=== PATIENT | male | born 1945 | race Hispanic/Latino ===

== ENCOUNTER 2018-10-05 12:51 | Inpatient (IN) | payer OTHER ==
[~2018-10-05] VITALS: Ht 175.3 cm; Wt 88.0 kg
--- NOTE | 2018-10-05 14:57 | Diagnostic Imaging Report ---
Exam: Right foot, 3 views History: Diabetic foot ulcer great toe Comparison: None. Findings: No acute, displaced fracture or dislocation. There is cortical erosion of the subungual tuft of the first distal phalanx. Joint spaces are well-maintained. Soft tissues are notable for mild the first digit soft tissue swelling and atherosclerotic vascular calcifications. Impression: Soft tissue swelling with osteomyelitis of the distal first phalanx. Signed by: Dr. Clement Mckay M.D. on 10/05/2018 2:54 PM
[2018-10-05] MEDS ORDERED: ONDANSETRON HCL INJ 2 MG/ML VIAL IV PRN (17:15)
[2018-10-05] MEDS ORDERED: SODIUM CHLORIDE FLUSH 10 ML SYR INJ PRN (17:15)
[2018-10-05] MEDS ORDERED: SODIUM CHLORIDE 0.9% 1000ML 1,000 ML ONE (17:16)
[2018-10-05] MEDS ORDERED: MORPHINE SULFATE INJ 4 MG/ML INJ IV PRN (17:30)
[2018-10-05] MEDS ORDERED: MORPHINE SULFATE 2 MG/ML SYR IV PRN (17:30)
[2018-10-05 17:48] LABS: BASOPHILS # (AUTO) 0.1 (0.0-0.1); BASOPHILS % 0.5 % (0.0-1.0); EOSINOPHILS # (AUTO) 0.2 (0.0-0.4); EOSINOPHILS % 1.6 % (0.0-6.0); HEMATOCRIT 44.3 % (38.2-49.6); HEMOGLOBIN 14.8 g/dL (14.0-18.0); LYMPHOCYTES # (AUTO) 1.1 (1.0-3.2); LYMPHOCYTES % 11.8 % (18.0-39.1); MEAN CORPUSCULAR HEMOGLOBIN 30.1 pg (28-32); MEAN CORPUSCULAR HGB CONC 33.4 g/dL (31-35); MEAN CORPUSCULAR VOLUME 90.2 fL (81-99); MONOCYTES % 10.4 % (4.4-11.3); NEUTROPHILS # (AUTO) 7.2 (2.1-6.9); NEUTROPHILS % 75.4 % (38.7-80.0); PLATELET COUNT 243 x10e3/uL (140-360); RED BLOOD COUNT 4.91 x10e6/uL (4.3-5.7); RED CELL DISTRIBUTION WIDTH 12.5 % (11.7-14.4)
[2018-10-05] MEDS: PIPER-TAZ 3.375 GM 50 ML IV SCH (18:00)
[2018-10-05] MEDS: SODIUM CHLORIDE 0.9% 1000ML 1,000 ML IV SCH (18:00)
--- NOTE | 2018-10-05 18:04 | NUR ---
The patient is AA&Ox4. The legal contracts specialist was contacted, to request a visit with the family. The legal contracts specialist will see the patient in the AM first thing. The patient is eating a meal as well. The admitting MD is at the bedside to consult with the patient. All fluids and zosyn given as ordered. The patient refused narcotics and anti-emetics. Pt states he is not hurting or nauseous.
[2018-10-05 18:14] LABS: ALANINE AMINOTRANSFERASE 22 IU/L (0-55); ALBUMIN 3.9 g/dL (3.5-5.0); ALKALINE PHOSPHATASE 74 IU/L (40-150); ANION GAP 17.1 mmol/L (8-16); BLOOD UREA NITROGEN 25 mg/dL (7-26); BUN/CREATININE RATIO 21 (6-25); CALCIUM 10.2 mg/dL (8.4-10.2); CARBON DIOXIDE 26 mmol/L (22-29); CHLORIDE 97 mmol/L (98-107); CHOL/HDL RATIO 2.7 (3.9-4.7); CHOLESTEROL 168 MD/DL (0-199); CREATININE, SERUM 1.17 mg/dL (0.72-1.25); EST GLOMERULAR FILTRATION RATE > 60 ML/MIN (60-); GLUCOSE 113 mg/dL (74-118); HDL CHOLESTEROL 62 MG/DL (40-60); LDL CHOLESTEROL 86 MG/DL (60-130); POTASSIUM 4.1 mmol/L (3.5-5.1); SODIUM 136 mmol/L (136-145); TRIGLYCERIDES 101 MG/DL (0-149)
[2018-10-05] MEDS ORDERED: SODIUM CHLORIDE 0.9% 1000ML 1,000 ML IV ONE (18:15)
--- NOTE | 2018-10-05 18:36 | NUR ---
Report called to floor RN. Pt transported to 114 with family.
--- OUTSIDE RECORDS SUMMARY | 2018-10-05 18:41 | XMS REPORT ---
Author Author [facility] Address Unknown Phone Unavailable Care Team Providers Care Prosthetic Technician Name Role Phone Yesica RENEE Unavailable Unavailable Problems This patient has no known problems. Allergies, Adverse Reactions, Alerts This patient has no known allergies or adverse reactions. Medications This patient has no known medications. Results Test Description Test Time Test Comments Text Results Atomic Results Result Comments FOOT RIGHT COMPLETE 2018-10-05 14:52:00 [place] [address] Patient Name: ALE CROSS MR #: [id number] : 1945 Age/Sex: 73/M Req #: [id number] Adm Physician: Ordered by: SIMONE RENEE MD Report #: [id number] Location: ER Room/Bed: Procedure: [id number] DX/FOOT RIGHT COMPLETE Exam Date: Exam Time: REPORT STATUS: Signed Exam: Right foot, 3 views History: Diabetic foot ulcer great toe Comparison: None. Findings: No acute, displaced fracture or dislocation. There is cortical erosion of the subungual tuft of the first distal phalanx. Joint spaces are well-maintained. Soft tissues are notable for mild the first digit soft tissue swelling and atherosclerotic vascular calcifications. Impression: Soft tissue swelling with osteomyelitis of the distal first phalanx. Signed by: Dr. Zain Arnold M.D. on 10/05/2018 2:54 PM Dictated By: ZAIN ARNOLD MD 53 Transcribed By: JALEN on 10/05/181453 COPY TO: SIMONE RENEE MD
--- NOTE | 2018-10-05 19:05 | NUR ---
PT ARRIVED AT THE UNIT FROM ER KI STRETCHER WITH C/O R .GREAT TOE PAIN. UNSTAGEABLE INFECTED WOUND NOTED @ R.GREAT TOE.NO PAIN VOICED.RED DISCOLORATION NOTED @ R.FOOT.ASSESSMENT DONE.NO RESP.DISTRESS.ORIENTED THE PT TO THE UNIT.RECEIVED ORDERS TO GET RENEW THE HOME MEDICATION.INFORMED THE CONSULTS.FAMILY MEMBER AT BED SIDE.BED LOCKED AND IN LOWEST POSITION.PHONE AND CALL LIGHT WITHIN REACH.INSTRUCTED TO CALL FOR ASSISTANCE NEEDED.KEEP MONITORING THE PT.
[2018-10-05 19:55] VITALS: BP 134/72
[2018-10-05 20:00] VITALS: BP 135/72
[2018-10-05] MEDS: VANCOMYCIN 1GM/NS 250 ML 250 ML IV SCH (20:44)
[2018-10-05 21:00] VITALS: BP 135/72
[2018-10-05] MEDS ORDERED: DEXTROSE 50% SYRINGE 50 ML IV PRN (21:00)
[2018-10-05] MEDS: INSULIN LISPRO 100 UNIT/1 ML 3ML VIAL SQ SCH (21:30)
[2018-10-06] VITALS (8 sets, daily range): BP systolic 117–132; BP diastolic 58–73
[2018-10-06] MEDS: SODIUM CHLORIDE 0.9% 1000ML 1,000 ML IV SCH (00:38)
[2018-10-06] MEDS: PIPER-TAZ 3.375 GM 50 ML IV SCH ×3 (02:00→18:21)
[2018-10-06] MEDS ORDERED: PRIMIDONE50 MG PO (02:51)
[2018-10-06] MEDS ORDERED: LOSARTAN POTASS25 MG PO ×2 (02:51)
[2018-10-06] MEDS ORDERED: LEVOTHYROXINE50 MCG PO (02:51)
[2018-10-06] MEDS ORDERED: GABAPENTIN100 MG PO (02:51)
[2018-10-06] MEDS ORDERED: METFORMIN HCL500 MG PO (02:51)
--- NOTE | 2018-10-06 02:56 | NUR ---
MILD DRAINAGE NOTED FROM THE R.GREAT TOE.DRESS THE WOUND.NO PAIN VOICED.
[2018-10-06 05:20] LABS: BASOPHILS % 0.2 % (0.0-1.0); EOSINOPHILS # (AUTO) 0.2 (0.0-0.4); EOSINOPHILS % 2.1 % (0.0-6.0); HEMATOCRIT 39.2 % (38.2-49.6); HEMOGLOBIN 13.1 g/dL (14.0-18.0); LYMPHOCYTES # (AUTO) 0.9 (1.0-3.2); MEAN CORPUSCULAR HGB CONC 33.4 g/dL (31-35); MEAN CORPUSCULAR VOLUME 89.9 fL (81-99); MONOCYTES # (AUTO) 0.8 (0.2-0.8); MONOCYTES % 9.6 % (4.4-11.3); NEUTROPHILS # (AUTO) 6.3 (2.1-6.9); NEUTROPHILS % 76.9 % (38.7-80.0); PLATELET COUNT 193 x10e3/uL (140-360); RED BLOOD COUNT 4.36 x10e6/uL (4.3-5.7); RED CELL DISTRIBUTION WIDTH 12.4 % (11.7-14.4)
[2018-10-06] MEDS: VANCOMYCIN 1GM/NS 250 ML 250 ML IV SCH ×2 (05:40→19:32)
[2018-10-06] MEDS: LEVOTHYROXINE SODIUM 50 MCG TAB PO SCH (05:40)
[2018-10-06 05:50] LABS: ALANINE AMINOTRANSFERASE 18 IU/L (0-55); ALBUMIN 3.2 g/dL (3.5-5.0); ALKALINE PHOSPHATASE 62 IU/L (40-150); ANION GAP 15.4 mmol/L (8-16); BLOOD UREA NITROGEN 22 mg/dL (7-26); BUN/CREATININE RATIO 21 (6-25); CALCIUM 9.1 mg/dL (8.4-10.2); CARBON DIOXIDE 23 mmol/L (22-29); CHLORIDE 99 mmol/L (98-107); CREATININE, SERUM 1.03 mg/dL (0.72-1.25); EST GLOMERULAR FILTRATION RATE > 60 ML/MIN (60-); GLUCOSE 171 mg/dL (74-118); POTASSIUM 4.4 mmol/L (3.5-5.1); SODIUM 133 mmol/L (136-145)
--- NOTE | 2018-10-06 06:50 | NUR ---
ASSESSMENT: Spiritual Distress Referred by ED RN. Pt is scared and feels abandoned by sons. Pt states his mother suffered from the same illness and had bilateral amputation. Pt afraid the same will happen to him. Pt states his sons have stopped communicating with him. Pt expressed emotions thru words and tears. Intervention: Provided hospitality and empathic listening. Facilitated identification of emotions. Provided prayer. Outcome: Pt expressed appreciation for visit. Will follow as able. KEVIN LUJAN Child Support Agent Spiritual Care Department O: [phone] Pager: [phone] ([phone] number calling from)
[2018-10-06] MEDS: INSULIN LISPRO 100 UNIT/1 ML 3ML VIAL SQ SCH ×5 (07:30→21:00)
[2018-10-06] MEDS ORDERED: NOVOLOG MI100 UNIT/1 SQ ×2 (08:46)
--- NOTE | 2018-10-06 09:36 | History and Physical ---
ulcer and right foot cellulitis. HISTORY OF PRESENT ILLNESS: A 73-year-old man with a long history of diabetes, on insulin and oral hypoglycemic medications. The patient has diabetic neuropathy. 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 He did not notice the fact that his right great toe developed an ulcer. It is infected. There is some necrotic tissue. The patient was admitted at this for . The patient is otherwise stable. . PAST MEDICAL HISTORY: Diabetes, on insulin therapy, hypertension, hypothyroidism, diabetic neuropathy. PAST SURGICAL HISTORY: Partial wound resection approximately 3 years ago for , radiation and chemotherapy. ALLERGIES: NO KNOWN ALLERGIES. MEDICATIONS: List reviewed. Gabapentin, levothyroxine , . PHYSICAL EXAMINATION VITAL SIGNS: Temperature is 98, blood pressure 138/74, pulse rate of 92, respirations 18. . HEENT: Head is normocephalic and atraumatic. NECK: Supple grossly. PULMONARY: Clear. CARDIOVASCULAR: Regular rate and rhythm. ABDOMEN: Soft. EXTREMITIES: Right greater toe infected with ulcer with necrotic tissue. Right foot cellulitis as well. Pulses intact. NEUROLOGIC: Diabetic neuropathy . LABORATORY STUDIES: Sodium is 133, potassium 4.1, chloride 97, bicarb 26, BUN 25, creatinine 1.1, glucose 113. WBC is 9.95, hemoglobin 14.8, hematocrit 44.6, and platelets of 243,000. Sed rate is 41. Right foot x-ray shows soft tissue swelling with osteomyelitis of the distal 1st phalanx. IMPRESSION 1. Right 1st phalanx right great toe osteomyelitis with infected diabetic foot ulcer with necrotic tissue and swelling: There is also right foot cellulitis as well. 2. Diabetes, type 2: On insulin therapy. PLAN: IV antibiotics. Tighter control of blood sugar. MRI of the right foot. If confirmed, the patient will need right great toe amputation. consulted. Job#: [id number] CE
--- NOTE | 2018-10-06 09:39 | Progress Note ---
DATE: October 06, 2018 SUBJECTIVE: Patient was seen at bedside accompanied by . Doing somewhat better. Denies any history of fever, chills, nausea, or vomiting. OBJECTIVE VITALS: Afebrile, pulse rate 77, respirations 18, blood pressure 125/68, O2 saturation 96%. EXTREMITIES: Still some foul smell noted to the right great toe. Some discoloration. The cellulitis of the dorsal aspect of the right foot seems to be resolving with the IV antibiotics. Has some pain overlying the 1st metatarsophalangeal joint, right foot when compared to the left. LABS: Show white blood cells dropping to 8.2, hemoglobin 13.1 with a platelet count of 193,000. ASSESSMENT 1. Possible osteomyelitis. 2. Pregangrenous changes noted. 3. Peripheral artery disease with diabetic neuropathy and capsulitis/hallux valgus deformity. PLAN: Will continue dilute wet-to-dry Betadine. Continue IV antibiotics. MRI will be ordered and will be done today. Will treat conservatively for now. Patient understands possible surgical intervention. Will let the foot demarcate before any surgery is attempted to try to salvage as much as possible. Job#: [id number] CE
[2018-10-06] MEDS: INSULIN ASPART 70/30 100 UNITS/ML VIAL SC SCH ×3 (10:00→21:00)
[2018-10-06] MEDS: PRIMIDONE 50 MG TAB PO SCH ×2 (10:00→18:21)
--- NOTE | 2018-10-06 10:12 | Consultation ---
DATE OF CONSULTATION: October 05, 2018 PODIATRY CONSULTATION REASON FOR CONSULTATION: Pain to the right foot with pregangrenous changes noted to the right great toe. HISTORY OF PRESENT ILLNESS: This is a pleasant 73-year-old male with a history of insulin-dependent diabetes, hypertension, hypercholesterolemia, who relates that a piece of metal fell on his right great toe 3 weeks ago. He ignored it due to the fact that he has no feeling. The foot started hurting and the right great toe started smelling very bad according to the who was present. He is currently denying any history of fever, chills, nausea or vomiting. He does relate some discomfort to the forefoot aspect of the right foot overlying the distal aspect of the right great toe and also medial aspect of the 1st metatarsophalangeal joint. PAST MEDICAL HISTORY: As described above. Insulin-dependent diabetes, hypertension, hypercholesterolemia. PAST SURGICAL HISTORY: Remarkable for a partial resection of colon secondary to colon cancer. ALLERGIES: PATIENT DENIES. SOCIAL HISTORY: Denies any smoking, drinking or recreational drug use. Lives with his current . Has 5 kids on a previous marriage. FAMILY HISTORY: Remarkable for diabetes. CURRENT MEDICATIONS: Note listed in the chart including IV vancomycin and Zosyn. Also on morphine sulfate 4 mg IV piggyback every 4 to 6 hours p.r.n. pain. REVIEW OF SYSTEMS: CARDIAC: He is denying any palpitations or arrhythmias. RESPIRATORY: Denies any shortness of breath, productive cough. GASTROINTESTINAL: Denies any diarrhea, constipation. GENITOURINARY: Denies hematuria or problems voiding. VITALS: Afebrile, pulse rate 86, respirations 17, blood pressure 135/72, O2 saturation 99%. LABS: Noted. Has a white blood cell count of 9.5, hemoglobin 14.8, hematocrit 44.3 with a platelet count of 243. PODIATRIC PHYSICAL EXAMINATION: Reveals the following. VASCULATURE: Pedal pulses to both the dorsalis pedis and posterior tibial arteries are barely palpable. Skin temperature between warm and cool to touch. NEUROLOGICAL Reveals a complete loss of protective sensation when utilizing Jerome-Kristofer 5.07 monofilament wire. MUSCULOSKELETAL Reveals muscle mass to be symmetrical, muscle strength to be 4 to 5 out of 5 to all muscle groups. Has some erythema surrounding the 1st metatarsophalangeal joint with pain upon palpation. DERMATOLOGICAL Reveals pregangrenous changes with foul smell noted with a discolored right great toe and swollen when compared to contralateral side. X RAYS: Were reviewed, revealing possible osteolysis to the distal phalanx which may be consistent with osteomyelitis. May also have a stress fracture secondary to a contusion. Has cyst degeneration overlying the 1st metatarsal head medially with calcification of vessels noted. ASSESSMENT: Peripheral arterial disease with cellulitis to the dorsal aspect of the right foot. Pregangrenous changes noted. Diabetic neuropathy with mild hallux valgus deformity. PLAN: Will start diluted wet-to-dry Betadine dressing. Noninvasive arterial Doppler studies/ultrasound will be reviewed. Patient will need to have an MRI. Will treat him conservatively. Patient understands if not responsive to conservative treatment and depending on his arterial ultrasound, may need angioplasties before any surgery is attempted. Patient understands that there is a possibility of losing the toe if it does not respond to IV and local wound care for now. Job#: [id number] BHASKAR
--- NOTE | 2018-10-06 12:17 | Diagnostic Imaging Report ---
TECHNIQUE: Magnetic resonance imaging of the RIGHT foot (forefoot) was performed WITHOUT injected contrast. HISTORY: Right great toe osteomyelitis, pain, heavy object fell on toe, one week ago, per the provided clinical note, signs of gangrene right great toe COMPARISON: Right foot radiographs October 05, 2018 DISCUSSION: Bone: Diffuse edema involving the distal phalanx of the great toe with multiple intrinsic heterogeneity (series 4 image 13 and series 5 image 13), but in general relative preservation of the fatty marrow signal. Joints: Mild degenerative changes of the first metatarsophalangeal joint. No effusion. Soft Tissues: Soft tissue defect at the distal medial aspect of the great toe. Less than expected edema of the great toe soft tissues. Enhancement characteristics cannot be assessed. Edema and atrophy of the intrinsic muscles of the foot. IMPRESSION: First distal phalanx findings are somewhat nonspecific, the absence of intravenous contrast limits this evaluation. Differential considerations include a comminuted nondisplaced fracture of the distal phalanx without superimposed osteomyelitis or gangrene of the distal great toe with mummified fat throughout the distal phalanx. If further imaging characterization is desired and the patient can receive intravenous contrast, follow-up MRI images of the great toe with and without contrast would be helpful. Signed by: Dr. Lucas Petty D.O., M.M.M. on 10/06/2018 12:14 PM
--- NOTE | 2018-10-06 15:39 | NUR ---
Nutrition Screen Note RD Recommendation for Physician: -Continue ADA diet as ordered -Pt and family are not interested in diet education 10/06 Plan of Care: RD following, monitoring for tolerance and adequacy Nutrition reason for involvement: Nutrition risk trigger MST Primary Diagnose(s): 1.Peripheral arterial disease with cellulitis to the dorsal aspect of the right foot. 2.Pregangrenous changes noted. 3.Diabetic neuropathy with mild hallux valgus deformity. PMH: Diabetes, on insulin therapy, hypertension, hypothyroidism, diabetic neuropathy. Ht: 69in Wt: 190lb BMI: 28.1kg/m2 IBW: 160lb RD Assessment: (10/06) Chart reviewed. Labs and meds reviewed. 73 yo M, who is admitted for R foot cellulitis and infection. 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 No GI complains noted. LBM 10/06. Pt denies any chewing or swallowing difficulty. No recent weight loss reported. 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 Pt and family are not interested in any further education. Will continue to monitor and follow. Current Diet: ADA diet Malnutrition Evaluation (10/06/2018) The patient does not meet criteria for a specified degree of malnutrition at this time. Will re-evaluate at follow-up as appropriate. Diet Education Needs Assessment: Diet education indicated, pt and family are not interested. Nutrition Care Level: low Signed: Nevaeh Viveros, MS, RD, LD
--- NOTE | 2018-10-06 19:30 | NUR ---
Completed rounds with morning nurse at bedside. Pt stable lying in bed 45 degrees. Call tucker within reach. Family at bedside. No acute distress noted.
[2018-10-06] MEDS: GABAPENTIN 100 MG CAP PO SCH (21:00)
[2018-10-06] MEDS ORDERED: NON-FORMULARY MEDICATION (Insuln Asp Prt/Insulin Aspart (Novolog Mix 70-30 Flexpen Syrn) 4 SQ SCH (21:00)
[2018-10-06] MEDS: LOSARTAN POTASSIUM 25 MG TAB PO SCH (21:00)
[2018-10-07] VITALS (7 sets, daily range): BP systolic 122–141; BP diastolic 58–73
--- NOTE | 2018-10-07 02:44 | NUR ---
Pt anxious, c/o shakiness of the hands and feeling lightheaded. BS 109mg/dl. Pt drank 4oz orange juice, stated BS is lower that his usual BS level.
[2018-10-07] MEDS: PIPER-TAZ 3.375 GM 50 ML IV SCH ×3 (02:58→17:57)
[2018-10-07] MEDS: LEVOTHYROXINE SODIUM 50 MCG TAB PO SCH (06:34)
[2018-10-07] MEDS: VANCOMYCIN 1GM/NS 250 ML 250 ML IV SCH ×2 (06:34→18:36)
[2018-10-07] MEDS ORDERED: NON-FORMULARY MEDICATION (Insuln Asp Prt/Insulin Aspart (Novolog Mix 70-30 Flexpen Syrn) 3 SQ SCH (07:30)
[2018-10-07] MEDS: INSULIN LISPRO 100 UNIT/1 ML 3ML VIAL SQ SCH ×4 (07:30→21:00)
--- NOTE | 2018-10-07 09:38 | Progress Note ---
DATE: October 07, 2018 SUBJECTIVE: Patient seen at bedside accompanied by spouse. Doing better. Denies any history of fever, chills, nausea, or vomiting. No pain to the right lower extremity secondary to his neuropathy. Has erythema. OBJECTIVE VITALS: Afebrile, pulse rate 71, respirations 18, blood pressure 122/58, O2 saturation 96%. EXTREMITIES: Has still some foul smell to the dorsal aspect of the right great toe secondary to pregangrenous changes. Erythema surrounding the 1st metatarsophalangeal joint with pedal pulses diminished. Cellulitis of the dorsal aspect of right foot is much better. MRI questionable for possible osteomyelitis to the distal phalanx. Also, has a possible stress fracture secondary to the contusion. ASSESSMENT 1. Peripheral artery disease. 2. Diabetic neuropathy with cellulitis and pregangrenous changes noted to the right great toe. PLAN: Dr. Alfredo Rebollar will be consulted for vascular evaluation. Will continue IV antibiotics, such as vancomycin and Zosyn. Will continue local wound care. Ulceration to the distal aspect of the right great toe will be debrided tomorrow. Possible nail avulsion may need to be done for debridement to the nail bed. There may be some bone exposed. Will continue to treat conservatively with IV antibiotics and local wound care. Await Dr. Rebollar to assess his circulation before any definitive procedure is done. Job#: [id number] MA
--- NOTE | 2018-10-07 10:05 | NUR ---
WET TO DRY WOUND CARE WITH BETADINE SOLUTION APPLIED TO THE RIGHT GREAT TOE, PATIENT TOLERATED PROCEDURE WELL, HE DENIES PAIN. ODOR NOTED TO THE TOE WHILE PROVIDING CARE; CALL LIGHT WITHIN EASY REACH, INSTRUCTED TO CALL FOR ASSISTANCE NEEDED.
[2018-10-07] MEDS: PRIMIDONE 50 MG TAB PO SCH ×2 (10:17→17:38)
--- NOTE | 2018-10-07 14:15 | NUR ---
PATIENT CONDITION STABLE WITHOUT ACUTE DISTRESS, FAMILY FRIEND VISITING WITH THE PATIENT.
[2018-10-07] MEDS ORDERED: ATORVASTATIN 20 MG TAB PO SCH (15:30)
--- NOTE | 2018-10-07 15:42 | History and Physical ---
PRIMARY CARE PHYSICIAN: Dr. Gilles Celis PARCEL WRAPPER: Dr. Keron Issa and Dr. Alfredo Acuna CHIEF COMPLAINT: Right greater toe abscess, infected diabetic foot ulcer with cellulitis. HISTORY: The patient is a 73-year-old male with infection of the right foot with right greater toe infection and ulcer. 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 The patient developed this infection. Two weeks ago his caught the infection and brought the patient to his family physician. Subsequently, he was brought into the emergency room. The patient is otherwise stable at this time. PAST MEDICAL HISTORY: Diabetes, on insulin, hypertension. PAST SURGICAL HISTORY: Noncontributory. SOCIAL HISTORY: The patient does not smoke or use alcohol. No recreational drugs. ALLERGIES: NO KNOWN ALLERGIES. HOME MEDICATIONS: List is reviewed. REVIEW OF SYSTEMS: Right greater toe infection. Diabetic foot ulcer with redness and pain. PHYSICAL EXAMINATION VITAL SIGNS: Temperature is 98, blood pressure 135/73, pulse rate is 80, respirations 18. GENERAL: The patient is in no acute distress. He is awake. HEENT: Normocephalic, atraumatic and anicteric. NECK: Supple grossly. PULMONARY: Diminished breath sounds. CARDIOVASCULAR: S1 and S2. Regular rate and rhythm. ABDOMEN: Soft, nontender and nondistended. EXTREMITIES: Right foot cellulitis. Right greater toe abscess and necrotic tissue at the tip and also poor toenail care. NEUROLOGIC: Diabetic neuropathy without any focal deficit. LABORATORY: Sodium is 133, potassium 4.4, chloride 109, bicarb 23, BUN 22 creatinine 1.03, glucose 171. WBC is 8.2, hemoglobin 13.1, hematocrit 39.2, and platelets are 193,000. IMPRESSION 1. Right infected diabetic greater toe ulcer associated with necrotic issues and swelling of right foot. 2. Diabetes, type 2, on insulin therapy. 3. Diabetic neuropathy. PLAN: Continue with IV antibiotics. Vascular consultation. Podiatry care with Dr. Keron Issa. Will monitor the patient closely at this time. Job#: [id number] UT
[2018-10-07] MEDS: ASPIRIN 81 MG CHEW TAB PO SCH (16:32)
[2018-10-07] MEDS: METOPROLOL SUCCINATE 25 MG TAB XL PO SCH (16:33)
[2018-10-07] MEDS: ATORVASTATIN 40 MG TAB PO SCH (16:33)
[2018-10-07] MEDS: SODIUM CHLORIDE 0.9% 1000ML 1,000 ML IV SCH ×2 (16:35)
[2018-10-07] MEDS: ENOXAPARIN SOD INJ 40 MG/0.4 ML SYR SC SCH (17:38)
--- NOTE | 2018-10-07 18:36 | NUR ---
PATIENT IS BEEN TRANSFER TO #[id number], REPORT GIVEN TO THE RECEIVING NURSE. ALL PERSONAL TAKEN WITH THE PATIENT, HE LEFT UNIT PER WHEELCHAIR, ACCOMPANIED BY STAFF.
--- NOTE | 2018-10-07 19:10 | NUR ---
REPORT RECEIVED FROM OFF GOING NURSE ,PT RESTING IN BED ALERT AND ORIENTED, NO DISTRESS NOTED, DENIES NEEDS, CALL LIGHT IN REACH, SITTER AT BEDSIDE
--- NOTE | 2018-10-07 19:10 | NUR ---
REPORT RECEIVED FROM OFF GOING NURSE, PT RESTING IN BED ALERT AND ORIENTED, IV INFUSING PER ORDER, PT VOICES UNDERSTANDING, ALL LIGHT IN REACH, INSTRUCTED TO CALL WITH NEEDS
--- NOTE | 2018-10-07 19:22 | Consultation ---
DATE OF CONSULTATION: October 07, 2018 CARDIOLOGY CONSULTATION REASON FOR CONSULTATION: Peripheral arterial disease. HISTORY OF PRESENT ILLNESS: Mr. Larsen is a pleasant 73-year-old man with history of dyslipidemia, hypertension, neuropathy, who presents to [facility] with right first toe erythema, black discoloration, foul smell, associated to blunt trauma while walking. In the setting of a neuropathy, he did not realize he developed an ulcer for an unclear amount of time and has been dealing with this for at least 2 weeks. He underwent unilateral arterial Doppler of the right lower extremity revealing monophasic waveforms of the anterior tibial and posterior tibial arteries as well as elevated velocities on the right anterior tibial concerning for outflow disease. He has received initial antibiotic therapy as well as IV fluids, initially presenting with elevated lactic acid concerning for sepsis with improvement with initial therapy. He is being evaluated by podiatry with plans for additional surgical revision of the infected foot. Underwent MRI study today, please see separate report. TWELVE-SYSTEM REVIEW: Negative except for as noted above. ALLERGIES: NO KNOWN DRUG ALLERGIES. PAST MEDICAL HISTORY: Diabetes, hypertension, dyslipidemia, and neuropathy. SOCIAL HISTORY: No active smoking, alcohol, or drugs. FAMILY HISTORY: Noncontributory. PHYSICAL EXAMINATION: VITAL SIGNS: Temperature is 97.2, heart rate 80, blood pressure 135/73, respiratory rate 18, O2 sat 95% on room air. BMI is 29.5. GENERAL: In no acute distress, alert. NECK: No JVD. CHEST: Clear to auscultation. CARDIOVASCULAR: Regular rate and rhythm. Normal S1 and S2. No S3 or S4. ABDOMEN: Soft, nontender. EXTREMITIES: No cyanosis or clubbing. Has trace edema to bilateral lower extremities. Right first toe erythema with ulceration and foul smell. Decreased pulses in pedal and dorsalis pedis bilaterally. CARDIOVASCULAR MEDICATIONS: Reviewed. Losartan 50 mg daily. On Zosyn and vancomycin antibiotic. STUDIES: Reviewed. Potassium 4.4, creatinine 1.03. Hemoglobin 13.1, platelets 193,000. Normal AST of 14 and ALT of 18. ASSESSMENT: 1. Peripheral vascular disease with critical limb ischemia and ulcer/cellulitis of right first digit and proximal forefoot (critical limb ischemia). 2. Diabetes mellitus type 2 with neuropathy. 3. Hypertension. 4. Dyslipidemia. 5. Sepsis. RECOMMENDATIONS: I have discussed at length alternatives, indications, risks and benefits for peripheral angiography and possible endovascular intervention. Will initiate aspirin 81 mg daily, atorvastatin 40 mg nightly, initiate low-dose beta patricia for blood pressure optimization and cardiovascular protection perioperatively and schedule for peripheral angiography and possible intervention. Patient voices understanding and agrees with plan of care. Job#: [id number] DR CELESTE
--- NOTE | 2018-10-07 19:23 | NUR ---
PT RECEIVED FROM MED SURG 1 VIA W/C , AAOX4, ORIENTED TO HIS ROOM, NO S/S OF DISTRESS NOTED, DENIES PAIN. RT AC 20G, VANCOMYCIN INFUSING, IV SITE CLEAN AND DRY. RT GREAT TOE CELLULITIS NOTED. GENERAL SKIN INTACT. IN ROOM WITH SPOUSE, CALL LIGHT WITHIN REACH.
[2018-10-07] MEDS: GABAPENTIN 100 MG CAP PO SCH (21:00)
[2018-10-07] MEDS: INSULIN ASPART 70/30 100 UNITS/ML VIAL SC SCH (21:00)
[2018-10-07] MEDS: LOSARTAN POTASSIUM 25 MG TAB PO SCH (21:00)
[2018-10-08] VITALS (13 sets, daily range): BP systolic 109–152; BP diastolic 56–74
[2018-10-08] MEDS: PIPER-TAZ 3.375 GM 50 ML IV SCH ×3 (04:19→17:44)
[2018-10-08] MEDS: VANCOMYCIN 1GM/NS 250 ML 250 ML IV SCH ×2 (05:22→19:20)
[2018-10-08] MEDS: LEVOTHYROXINE SODIUM 50 MCG TAB PO SCH (05:22)
[2018-10-08] MEDS: INSULIN ASPART 70/30 100 UNITS/ML VIAL SC SCH ×2 (07:30→21:00)
[2018-10-08] MEDS: INSULIN LISPRO 100 UNIT/1 ML 3ML VIAL SQ SCH ×4 (07:30→21:00)
--- NOTE | 2018-10-08 08:43 | Progress Note ---
DATE: October 08, 2018 SUBJECTIVE: Patient seen at bedside. Will be having an angiogram with possible angioplasty on this date with Dr. Rebollar. Denies any history of fever, chills, nausea, or vomiting. OBJECTIVE VITAL SIGNS: Afebrile, pulse rate 72, respirations 18, blood pressure 109/56, O2 saturation 96%. EXTREMITIES: Gangrenous changes to the right great toe are getting somewhat better. Has an ulceration to the distal aspect of the right great toe down to very close to bone with a foul smell subungually. The nail is yellow, discolored and filled with debris. Pedal pulses are diminished. Decreased cellulitis of the dorsal aspect of the right foot. ASSESSMENT 1. Peripheral artery disease. 2. Diabetic neuropathy. 3. Grade 3 ulceration/4 ulceration with possible osteomyelitis with onychomycosis. PLAN: Secondary to his neuropathy, sharp excisional debridement of the ulcer was carried very close to bone. Devitalized tissue removed until good viable bleeding tissue was achieved. Nail plate was removed to air out the nail bed. Sterile dressing was applied, including diluted wet-to-dry Betadine. Cultures were taken for aerobic and anaerobic growth. The patient will be undergoing an angiogram with possible angioplasty. Will continue treating the patient conservatively to see how the patient responds to try to salvage toe and foot. Job#: [id number] [place]
[2018-10-08] MEDS ORDERED: MIDAZOLAM HCL 2 MG/2 ML VIAL ONE (08:58)
[2018-10-08] MEDS ORDERED: FENTANYL CITRATE/PF 100MCG/2 ML INJ ONE (08:59)
[2018-10-08] MEDS ORDERED: LIDOCAINE HCL 2% LOCAL 20 ML VIAL ONE (08:59)
[2018-10-08] MEDS ORDERED: IOPAMIDOL 300MG/ML 100 ML INFUS..BTL IV ONE ×2 (08:59→10:04)
[2018-10-08] MEDS ORDERED: NITROGLYCERIN/D5W 200 MCG/ML 250 ML ONE (08:59)
[2018-10-08] MEDS ORDERED: SODIUM CHLORIDE 0.9% 1000ML 1,000 ML ONE ×2 (09:00→10:08)
[2018-10-08] MEDS: PRIMIDONE 50 MG TAB PO SCH ×2 (09:00→17:44)
[2018-10-08] MEDS ORDERED: HEPARIN SOD/SOD CHLORIDE 2,000 ML ONE (09:00)
--- NOTE | 2018-10-08 09:10 | NUR ---
PATIENT OFF THE UNIT TO SYSTEM MANAGER FOR PROCEDURE. PATIENT IS IN STABLE CONDITION WITH NO S/S OF RESPIRATORY DISTRESS. NO PAIN VOICED. DRESSING TO RIGHT GREAT TOE/FOOT IS INTACT.
[2018-10-08] MEDS ORDERED: CLOPIDOGREL BISULFATE 75 MG TAB ONE (09:36)
[2018-10-08] MEDS ORDERED: ASPIRIN 325 MG TAB ONE (09:36)
[2018-10-08] MEDS ORDERED: VERAPAMIL HCL 2.5 MG/ML 2 ML VIAL ONE (10:08)
--- NOTE | 2018-10-08 10:09 | Progress Note ---
DATE: October 08, 2018 CARDIOLOGY PROGRESS NOTE SUBJECTIVE: No new complaints today. OBJECTIVE VITALS: Temperature 97.3, heart rate 71, respiratory rate 16, blood pressure 137/67, O2 sat 98% on room air. GENERAL: In no acute distress. Alert. NECK: No JVD. CHEST: Clear to auscultation. CARDIOVASCULAR: Regular rate and rhythm. S1 and S2. No S3. No S4. ABDOMEN: Soft and nontender. EXTREMITIES: Right 1st toe dressed. CARDIOVASCULAR MEDICATIONS: Reviewed. 1. Metoprolol succinate 25 mg daily. 2. Atorvastatin 40 mg at bedtime. 3. Lovenox 40 mg subcutaneous daily. 4. Aspirin 81 mg daily. 5. Vancomycin and Zosyn. STUDIES: Reviewed. Sodium 133 potassium 4.4, chloride 99, bicarbonate 23, BUN 22, creatinine 1.03, glucose 171. White blood cells 8.2, hemoglobin 13.1 and platelets 193,000. AST 14, ALT 18. ASSESSMENT 1. Peripheral arterial disease with critical limb ischemia, 1st toe wound. 2. Hypertension. 3. Dyslipidemia. 4. Diabetes mellitus, type 2. RECOMMENDATIONS: Plan for angiography and possible endovascular intervention today. Further recommendations to follow. Continue rest of cardiovascular medications. Job#: [id number] CE
--- NOTE | 2018-10-08 11:34 | NUR ---
PATIENT BACK ON THE UNIT FROM [employer]- DRESSING APPLIED TO THE LEFT GROIN SITE, IT IS DRY AND INTACT. PEDAL PULSES CHECKED AND ARE PALPABLE. PATIENT INFORMED AND ACKNOWLEDGES UNDERSTANDING ON REMAINING FLAT UNTIL NOTIFIED. CALL LIGHT WITHIN PATIENT'S HANDS. BED ALARM APPLIED.
[2018-10-08] MEDS: METOPROLOL SUCCINATE 25 MG TAB XL PO SCH (12:49)
[2018-10-08] MEDS: ASPIRIN 81 MG CHEW TAB PO SCH (12:49)
[2018-10-08] MEDS: ATORVASTATIN 40 MG TAB PO SCH (12:49)
[2018-10-08] MEDS ORDERED: COLLAGENASE 5 GM TUBE TOP ONE (17:15)
--- NOTE | 2018-10-08 17:39 | NUR ---
RECEIVED VANCO TROUGH ORDER FROM DR. PIERCE. ORDER TO HOLD VANCOMYCIN IF TROUGH IS GREATER THAN 15 AND OBTAIN A RANDOM VANCO LAB ORDER FOR THE NEXT MORNING.
[2018-10-08] MEDS: ENOXAPARIN SOD INJ 40 MG/0.4 ML SYR SC SCH (17:44)
[2018-10-08] MEDS: SODIUM CHLORIDE 0.9% 1000ML 1,000 ML IV SCH ×2 (18:19→19:25)
--- NOTE | 2018-10-08 18:58 | NUR ---
RECEIVED CALL FROM LAB REGARDING VANCO TROUGH OF 12.5; ACCORDING TO DR. PIERCE'S ORDER OKAY TO ADMINISTER.
--- NOTE | 2018-10-08 19:10 | NUR ---
REPORT RECEIVED FROM OFF GOING NURSE, PT SITTING UP IN BED EATING WITH HOB ELEVATED, PT AAOX 3-4, NO DISTRESS NOTED, DENIES NEEDS, CALL LIGHT IN REACH, INSTRUCTED TO CALL WITH NEEDS, FAMILY AT BEDSIDE, IV INFUSING PER ORDER, DRESSING TO RIGHT TOE/ FOOT, C/D/I NO ACTIVE DRAINAGE NOTED
--- NOTE | 2018-10-08 19:25 | NUR ---
PATIENT IS IN STABLE CONDITION WITH NO S/S OF RESPIRATORY DISTRESS. NO PAIN VOICED. IV ANTIBIOTIC INFUSING. RIGHT GREAT TOE DRESSING IS DRY AND INTACT. FAMILY MEMBERS PRESENT IN ROOM. CALL LIGHT IS WITHIN REACH, INSTRUCTED TO CALL FOR ASSISTANCE NEEDED. REPORT GIVEN TO ONCOMING NURSE.
[2018-10-08] MEDS: GABAPENTIN 100 MG CAP PO SCH (21:00)
[2018-10-08] MEDS: LOSARTAN POTASSIUM 25 MG TAB PO SCH (21:00)
[2018-10-09] MEDS: PIPER-TAZ 3.375 GM 50 ML IV SCH ×3 (02:00→17:21)
[2018-10-09 04:25] VITALS: BP 151/70
[2018-10-09] MEDS: SODIUM CHLORIDE 0.9% 1000ML 1,000 ML IV SCH ×2 (05:25→18:02)
[2018-10-09] MEDS: LEVOTHYROXINE SODIUM 50 MCG TAB PO SCH (06:00)
[2018-10-09] MEDS: VANCOMYCIN 1GM/NS 250 ML 250 ML IV SCH ×2 (06:00→18:02)
[2018-10-09 06:15] LABS: BASOPHILS % 0.3 % (0.0-1.0); EOSINOPHILS # (AUTO) 0.2 (0.0-0.4); EOSINOPHILS % 2.2 % (0.0-6.0); HEMATOCRIT 39.9 % (38.2-49.6); HEMOGLOBIN 13.3 g/dL (14.0-18.0); LYMPHOCYTES # (AUTO) 0.6 (1.0-3.2); LYMPHOCYTES % 8.4 % (18.0-39.1); MEAN CORPUSCULAR HEMOGLOBIN 29.9 pg (28-32); MEAN CORPUSCULAR HGB CONC 33.3 g/dL (31-35); MEAN CORPUSCULAR VOLUME 89.7 fL (81-99); MONOCYTES # (AUTO) 0.7 (0.2-0.8); MONOCYTES % 9.7 % (4.4-11.3); NEUTROPHILS # (AUTO) 5.8 (2.1-6.9); PLATELET COUNT 208 x10e3/uL (140-360); RED BLOOD COUNT 4.45 x10e6/uL (4.3-5.7); RED CELL DISTRIBUTION WIDTH 12.1 % (11.7-14.4)
--- NOTE | 2018-10-09 06:15 | NUR ---
PT RESTING IN BED ALERT AND ORIENTED, ON DISTRESS NOTED, DENIES NEEDS, AT BEDSIDE, CALL LIGHT IN REACH, INSTRUCTED TO CALL WITH NEEDS
[2018-10-09 06:32] LABS: ANION GAP 12.7 mmol/L (8-16); BLOOD UREA NITROGEN 14 mg/dL (7-26); BUN/CREATININE RATIO 15 (6-25); CALCIUM 9.2 mg/dL (8.4-10.2); CARBON DIOXIDE 28 mmol/L (22-29); CHLORIDE 104 mmol/L (98-107); CREATININE, SERUM 0.92 mg/dL (0.72-1.25); EST GLOMERULAR FILTRATION RATE > 60 ML/MIN (60-); GLUCOSE 106 mg/dL (74-118); POTASSIUM 4.7 mmol/L (3.5-5.1); SODIUM 140 mmol/L (136-145)
--- NOTE | 2018-10-09 07:05 | NUR ---
PATIENT IS AWAKE AND IN STABLE CONDITION WITH NO S/S OF RESPIRATORY DISTRESS. NO PAIN VOICED. DRESSING TO RIGHT GREAT TOE/FOOT IS DRY AND INTACT. IV FLUIDS INFUSING. PRESENT IN ROOM. CALL LIGHT IS WITHIN REACH, INSTRUCTED TO CALL FOR ASSISTANCE NEEDED.
[2018-10-09] MEDS: INSULIN LISPRO 100 UNIT/1 ML 3ML VIAL SQ SCH ×4 (07:30→21:00)
[2018-10-09 08:00] VITALS: BP 117/62
[2018-10-09] MEDS ORDERED: ASPIRIN 325 MG TAB PO SCH (09:00)
[2018-10-09] MEDS: ATORVASTATIN 40 MG TAB PO SCH (09:35)
[2018-10-09] MEDS: ASPIRIN 81 MG CHEW TAB PO SCH (09:35)
[2018-10-09] MEDS: CLOPIDOGREL BISULFATE 75 MG TAB PO SCH (09:35)
[2018-10-09] MEDS: PRIMIDONE 50 MG TAB PO SCH ×2 (09:35→17:21)
[2018-10-09] MEDS: METOPROLOL SUCCINATE 25 MG TAB XL PO SCH (09:36)
[2018-10-09] MEDS: INSULIN ASPART 70/30 100 UNITS/ML VIAL SC SCH ×2 (09:48→21:00)
--- NOTE | 2018-10-09 11:30 | Progress Note ---
DATE: October 09, 2018 CARDIOLOGY PROGRESS NOTE SUBJECTIVE: No complaints. His right foot feels warm today. Patient had questions, which were discussed. OBJECTIVE VITALS: Temperature 97.8, heart rate 75, blood pressure 117/62, respiratory rate 18, and O2 sat 95% on room air. BMI 29. GENERAL: In no acute distress. Alert. NECK: No JVD. CHEST: Clear to auscultation. CARDIOVASCULAR: Regular rate and rhythm. Normal S1 and S2. No S3 or S4. ABDOMEN: Soft and nontender. EXTREMITIES: No edema. Warm distal extremities. Right foot covered with dressing. Digits are warm with good capillary refill. STUDIES: Sodium 140, potassium 4.7, chloride 104, bicarbonate 28, BUN 14, creatinine 0.92. Hemoglobin 13.3, platelets 202, white blood cell 9.29. AST 14, ALT 18. CARDIOVASCULAR MEDICATIONS: Reviewed; 1. Metoprolol succinate 25 mg daily. 2. Levothyroxine 50 mg daily. 3. Atorvastatin 40 mg q.h.s. 4. Zosyn and vancomycin antibiotics. 5. Aspirin 81 mg daily. 6. Lovenox 40 mg daily. 7. Clopidogrel 75 mg daily. 8. Losartan 50 mg q.h.s. ASSESSMENT 1. Peripheral arterial disease, status post right anterior tibial [employer] and status post right peroneal CSI arthrectomy and [employer] STEV[employer] with excellent angiographic results. 2. Diabetes mellitus type 2. 3. Hypertension. 4. Dyslipidemia. RECOMMENDATIONS 1. Continue current dual-antiplatelet therapy and rest of cardiovascular medications. 2. Continue antibiotics and wound care per podiatry. Job#: [id number] CARLIN CELESTE
[2018-10-09 11:35] VITALS: BP 117/62
[2018-10-09 11:39] VITALS: BP 122/58
--- NOTE | 2018-10-09 14:54 | Progress Note ---
DATE: October 09, 2018 SUBJECTIVE: Patient seen at bedside accompanied by nurse. Feels somewhat better. Relates he has a warmer foot since he had his angioplasty done by Dr. Rebollar. denies any history of fever, chills, nausea, or vomiting. OBJECTIVE VITAL SIGNS: Afebrile. Pulse rate 71, respirations 18, blood pressure 122/58, O2 saturation 94%. EXTREMITIES: Pedal pulses are somewhat palpable. Skin temperature warm to touch. Better CFT to all toes. Has necrosis to the distal aspect of the right great toe with still some foul smell present. There is bone felt through the ulceration site. LABS: Noted. White blood cell count 7.2, hemoglobin 13.3 with a platelet count of 208. ASSESSMENT: Grade 4 ulcer with possible osteomyelitis with peripheral arterial disease, status post angioplasty with pregangrenous changes. PLAN: Sharp excisional debridement of the ulcer was carried down to bone. Devitalized tissue sharply excised. The bone was scraped until good viable bleeding tissue was achieved. We will continue apply the Santyl followed by diluted wet-to-dry. Patient seems to be responding with serial debridement. We will try salvage toe and foot if possible. We will continue IV antibiotics, local wound care, and offloading. Continue following. Job#: [id number] CARLIN
[2018-10-09 16:01] VITALS: BP 148/70
[2018-10-09] MEDS: ENOXAPARIN SOD INJ 40 MG/0.4 ML SYR SC SCH (17:21)
--- NOTE | 2018-10-09 17:30 | NUR ---
WOUND CARE PROVIDED TO PATIENT'S RIGHT GREAT TOE AT [address] SRIVASTAVA'S ORDER. DRESSING DRY AND INTACT.
--- NOTE | 2018-10-09 19:00 | NUR ---
REPORT RECEIVED FROM OFF GOING NURSE, PT RESTING IN BED ALERT AND ORIENTED, IV INFUSING PER ORDER, NO DISTRESS NOTED, PT DENIES NEEDS, BED LOCKED AND LOW, DRESSING TO RIGHT TOE/FOOT, C/D/I, NO ACTIVE DRAINAGE NOTED, AT BEDSIDE, PT DENIES PAIN, CALL LIGHT IN REACH, INSTRUCTED TO CALL WITH NEEDS
--- NOTE | 2018-10-09 19:00 | NUR ---
PATIENT IS SITTING UP IN BED- IN STABLE CONDITION WITH NO S/S OF RESPIRATORY DISTRESS. IV ANTIBIOTIC INFUSING. IN ROOM. DRESSING TO RIGHT GREAT TOE/FOOT IS DRY AND INTACT. CALL LIGHT IS WITHIN REACH, INSTRUCTED TO CALL FOR ASSISTANCE NEEDED. REPORT GIVEN TO ONCOMING NURSE.
[2018-10-09 20:00] VITALS: BP 159/80
[2018-10-09] MEDS: LOSARTAN POTASSIUM 25 MG TAB PO SCH (21:00)
[2018-10-09] MEDS: GABAPENTIN 100 MG CAP PO SCH (21:00)
[2018-10-10] VITALS (9 sets, daily range): BP systolic 111–167; BP diastolic 58–89
[2018-10-10] MEDS: SODIUM CHLORIDE 0.9% 1000ML 1,000 ML IV SCH ×2 (01:25→17:06)
[2018-10-10] MEDS: PIPER-TAZ 3.375 GM 50 ML IV SCH ×3 (02:00→17:06)
[2018-10-10] MEDS: VANCOMYCIN 1GM/NS 250 ML 250 ML IV SCH (06:00)
[2018-10-10] MEDS: LEVOTHYROXINE SODIUM 50 MCG TAB PO SCH (06:00)
--- NOTE | 2018-10-10 06:08 | NUR ---
PT RESTING IN BED ALERT AND ORIENTED, NO DISTRESS NOTED, DENIES NEEDS, AT BEDSIDE, IV INFUSING PER ORDER, DENIES PAIN, CALL LIGHT IN REACH, INSTRUCTED TO CALL WITH NEEDS
--- NOTE | 2018-10-10 07:05 | NUR ---
PATIENT IS IN STABLE CONDITION WITH NO S/S OF RESPIRATORY DISTRESS. PATIENT DENIES ANY PAIN.IV FLUIDS INFUSING. DRESSING TO RIGHT FOOT IS DRY AND INTACT. CALL LIGHT IS WITHIN REACH, INSTRUCTED TO CALL FOR ASSISTANCE NEEDED.
[2018-10-10] MEDS: INSULIN ASPART 70/30 100 UNITS/ML VIAL SC SCH ×2 (07:30→21:18)
[2018-10-10] MEDS: INSULIN LISPRO 100 UNIT/1 ML 3ML VIAL SQ SCH ×4 (07:30→21:27)
--- NOTE | 2018-10-10 07:33 | NUR ---
RECEIVED A CALL FROM LAB REGARDING CRITICAL VANCO TROUGH OF 25.2- ORDER FROM DR. PIERCE TO HOLD VANCOMYCIN IF VANCO TROUGH IS GREATER THAN 15 AND OBTAIN RANDOM VANCO LAB THE NEXT DAY ().
[2018-10-10] MEDS: METOPROLOL SUCCINATE 25 MG TAB XL PO SCH (08:43)
[2018-10-10] MEDS: PRIMIDONE 50 MG TAB PO SCH ×2 (08:43→17:06)
[2018-10-10] MEDS: CLOPIDOGREL BISULFATE 75 MG TAB PO SCH (08:43)
[2018-10-10] MEDS: ATORVASTATIN 40 MG TAB PO SCH (08:43)
[2018-10-10] MEDS: ASPIRIN 81 MG CHEW TAB PO SCH (08:43)
--- NOTE | 2018-10-10 16:35 | NUR ---
WOUND CARE PROVIDED TO PATIENT'S RIGHT GREAT TOE. DRESSING IS DRY AND INTACT. PRESENT IN ROOM. CALL LIGHT IS WITHIN REACH, INSTRUCTED TO CALL FOR ASSISTANCE NEEDED.
[2018-10-10] MEDS: ENOXAPARIN SOD INJ 40 MG/0.4 ML SYR SC SCH (17:06)
--- NOTE | 2018-10-10 17:16 | Progress Note ---
DATE: October 10, 2018 SUBJECTIVE: Patient seen at bedside. Doing better. Accompanied by spouse. Denies any history of fever, chills, nausea, or vomiting. OBJECTIVE VITAL SIGNS: Afebrile, pulse rate 68, respirations 18, blood pressure 154/74, O2 saturation 98%. EXTREMITIES: Ulceration to the right great toe continues to improve. Granular fibrotic base noted. Bone felt to the distal aspect. Skin color has started to become a little bit more symmetrical with adjacent toe and proximal aspect of the foot. The amount of cellulitis to the dorsal aspect of right lower extremity continues to get better. Patient is starting to have some feeling on his right great toe. Pedal pulses are diminished, but skin temperature warm to touch. LABS: Show a white blood cell count of 7.2. ASSESSMENT: Peripheral arterial disease with a grade 3 ulcer, right foot, possible osteo, with cellulitis. PLAN: We will continue local wound care with Santyl followed by diluted wet-to-dry. Continue Zosyn IV piggyback. Continue offloading. We will continue to follow. Job#: [id number] LPA
--- NOTE | 2018-10-10 19:20 | NUR ---
PATIENT IS IN STABLE CONDITION WITH NO S/S OF RESPIRATORY DISTRESS. NO PAIN VOICED. IV FLUIDS INFUSING. DRESSING TO RIGHT TOE IS DRY AND INTACT. CALL LIGHT IS WITHIN REACH, INSTRUCTED TO CALL FOR ASSISTANCE NEEDED. REPORT GIVEN TO ONCOMING NURSE.
--- NOTE | 2018-10-10 20:03 | NUR ---
RECEIVED PT IN BED AOX4 .RESPIRATIONS ARE EVEN AND UNLABORED .CELLULITIS AT THE RT FOOT WITH DRESSING .RT AC 20 G S/L DEBRIDEMENT TO THE RT FOOT AM .DENIES PAIN CALL LIGHT WITH IN REACH .CONTINUE TO MONITOR
[2018-10-10] MEDS: LOSARTAN POTASSIUM 25 MG TAB PO SCH (20:57)
[2018-10-10] MEDS: GABAPENTIN 100 MG CAP PO SCH (20:57)
--- NOTE | 2018-10-10 22:19 | Progress Note ---
DATE: October 10, 2018 CARDIOLOGY PROGRESS NOTE SUBJECTIVE: No new complaints today. Foot wound healing. OBJECTIVE VITALS: Temperature is 96.1, heart rate 68, blood pressure 154/74, respiratory rate 18, and O2 sat 98%. GENERAL: No acute distress. Alert. NECK: No JVD. CHEST: Clear to auscultation. CARDIOVASCULAR: Regular rate and rhythm. Normal S1 and S2. No S3, no S4. ABDOMEN: Soft. EXTREMITIES: Trace edema. Right foot covered with dressing. CARDIOVASCULAR MEDICATIONS: Reviewed. 1. Aspirin 81 mg daily. 2. Clopidogrel 75 mg daily. 3. Atorvastatin 40 mg nightly. 4. Zosyn and vancomycin antibiotics. 5. Losartan 50 mg daily. 6. Lovenox 20 mg subcutaneous daily. 7. Metoprolol succinate 25 mg daily. STUDIES: Reviewed. Potassium 4.7, creatinine 0.9. Hemoglobin 13.3, platelets 208,000, white blood cells 7.2. Normal transaminases. ASSESSMENT 1. Peripheral arterial disease, status post right anterior tibial percutaneous transluminal angioplasty and right peroneal percutaneous transluminal angioplasty and atherectomy. 2. Diabetes mellitus. 3. Hypertension. 4. Dyslipidemia. 5. First toe wound. RECOMMENDATIONS 1. Continue podiatry care. 2. Continue antibiotics. 3. Current dual-antiplatelet therapy. 4. Continue rest of cardiovascular medications and monitor blood pressure. If it continues to remain elevated, we will up-titrate medication further. Job#: [id number]
[2018-10-11] MEDS: PIPER-TAZ 3.375 GM 50 ML IV SCH ×3 (02:00→16:51)
[2018-10-11 04:25] VITALS: BP 163/83
[2018-10-11] MEDS: SODIUM CHLORIDE 0.9% 1000ML 1,000 ML IV SCH ×2 (05:37→08:42)
[2018-10-11] MEDS: LEVOTHYROXINE SODIUM 50 MCG TAB PO SCH (06:25)
--- NOTE | 2018-10-11 06:25 | NUR ---
PT RESTED DURING THE NIGHT .PT IS NPO FORT HE PROCEDURE PT HAD BATH .FAMILY AT THE BEDSIDE .CALL LIGHT WITH IN REACH
--- NOTE | 2018-10-11 07:22 | NUR ---
REPORT GIVEN TO THE ON COMING NURSE
[2018-10-11 08:40] VITALS: BP 163/83
--- NOTE | 2018-10-11 08:40 | NUR ---
Pt received resting in bed with at bedside. Alert and oriented x4 with saline lock #20 patent in right Ac receiving fluids as ordered. Dressing change done to right foot great toe. Oriented to staff and surroundings. Emotional support given. Fall precautions maintained. Call tucker within reach. All meds given as ordered. Will monitor
[2018-10-11] MEDS: ASPIRIN 81 MG CHEW TAB PO SCH (08:41)
[2018-10-11] MEDS: CLOPIDOGREL BISULFATE 75 MG TAB PO SCH (08:41)
[2018-10-11] MEDS: METOPROLOL SUCCINATE 25 MG TAB XL PO SCH (08:41)
[2018-10-11] MEDS: PRIMIDONE 50 MG TAB PO SCH ×2 (08:41→16:04)
[2018-10-11 09:13] LABS: BASOPHILS # (AUTO) 0.1 (0.0-0.1); BASOPHILS % 0.7 % (0.0-1.0); EOSINOPHILS # (AUTO) 0.3 (0.0-0.4); EOSINOPHILS % 3.5 % (0.0-6.0); HEMATOCRIT 40.6 % (38.2-49.6); HEMOGLOBIN 13.6 g/dL (14.0-18.0); LYMPHOCYTES % 13.3 % (18.0-39.1); MEAN CORPUSCULAR HEMOGLOBIN 30.3 pg (28-32); MEAN CORPUSCULAR HGB CONC 33.5 g/dL (31-35); MEAN CORPUSCULAR VOLUME 90.4 fL (81-99); MONOCYTES # (AUTO) 0.9 (0.2-0.8); NEUTROPHILS % 69.9 % (38.7-80.0); PLATELET COUNT 217 x10e3/uL (140-360); RED BLOOD COUNT 4.49 x10e6/uL (4.3-5.7); RED CELL DISTRIBUTION WIDTH 12.3 % (11.7-14.4)
[2018-10-11 09:22] LABS: ANION GAP 13.3 mmol/L (8-16); BLOOD UREA NITROGEN 12 mg/dL (7-26); BUN/CREATININE RATIO 12 (6-25); CALCIUM 9.1 mg/dL (8.4-10.2); CARBON DIOXIDE 27 mmol/L (22-29); CHLORIDE 102 mmol/L (98-107); CREATININE, SERUM 1.02 mg/dL (0.72-1.25); EST GLOMERULAR FILTRATION RATE > 60 ML/MIN (60-); GLUCOSE 214 mg/dL (74-118); POTASSIUM 4.3 mmol/L (3.5-5.1); SODIUM 138 mmol/L (136-145)
--- NOTE | 2018-10-11 09:32 | Progress Note ---
DATE: October 11, 2018 SUBJECTIVE: Patient seen at bedside. Doing well. No apparent distress. Denies any history of fever, chills, nausea, or vomiting. OBJECTIVE VITALS: Afebrile, pulse rate 79, respirations 22, blood pressure 163/83, O2 saturation 95%. EXTREMITIES: Ulceration to the right great toe continues to heal. Has a grade 3/4 ulceration with some bone felt to the ulceration. Some necrotic tissue noted, but negative foul smell. Pedal pulses are diminished. Skin temperature warm to touch. LABS: Noted. ASSESSMENT: Grade 4 ulcer with osteomyelitis with cellulitis. PLAN: Continue IV antibiotics. Continue local wound care. Ulceration will be debrided possibly tomorrow at bedside. Continue offloading. Continue local wound care and IV antibiotics. Patient seems to be responding with conservative care for now. Job#: [id number] CE
[2018-10-11] MEDS: INSULIN ASPART 70/30 100 UNITS/ML VIAL SC SCH ×2 (10:05→21:11)
[2018-10-11] MEDS: INSULIN LISPRO 100 UNIT/1 ML 3ML VIAL SQ SCH ×4 (10:06→21:18)
--- NOTE | 2018-10-11 10:51 | NUR ---
ASSESSMENT: Spiritual concern Pt relieved by information about illness. Pt states he is "happy" that his health is improving without serious surgery. Intervention: Provided empathic listening and facilitated illness update. Outcome: Pt expressed appreciation for visit. No need to follow at this time. KEVIN LUJAN [employer] Spiritual Care Department O: [phone] Pager: [phone] ([phone] number calling from)
--- NOTE | 2018-10-11 11:04 | Progress Note ---
DATE: October 11, 2018 CARDIOLOGY PROGRESS NOTE SUBJECTIVE: Denies chest pain or shortness of breath. Patient has no current complaints. OBJECTIVE VITAL SIGNS: Reviewed. Mildly hypertensive. GENERAL: In no acute distress. Alert. NECK: No JVD. CHEST: Clear to auscultation. CARDIOVASCULAR: Regular rate and rhythm. Normal S1 and S2. No S3, S4, murmurs, or rubs. ABDOMEN: Soft and nontender. EXTREMITIES: No edema. Warm distal extremities. Good capillary refill. First right toe wound seems to be healing well. CARDIOVASCULAR MEDICATIONS: Reviewed. ASSESSMENT 1. Peripheral arterial disease: Status post revascularization. 2. Right 1st toe wound, improving. 3. Diabetes mellitus. 4. Hypertension. 5. Dyslipidemia. RECOMMENDATIONS 1. Continue current cardiovascular medications. 2. Monitor blood pressure. May need further up titration of antihypertensives over the course of the following days if continues to be elevated. 3. Continue podiatry care and antibiotics. Job#: [id number] CE
[2018-10-11 12:00] VITALS: BP 193/88
[2018-10-11 16:00] VITALS: BP 130/62
[2018-10-11] MEDS ORDERED: VANCOMYCIN 1GM/NS 250 ML 250 ML IV SCH (16:30)
--- NOTE | 2018-10-11 19:03 | NUR ---
Patient visited in room during nursing rounds. Patient alert and oriented x3. Right big toe with gauze and kerlix dressing s/p debridement on 10/08/18. Dressing appear clean and dry. at bedside. Patient aware Dr. Keron Issa will perform another debridement on right great toe ulcer tomorrow morning. Will verify order from Dr. Maegan horn.
[2018-10-11 20:00] VITALS: BP 137/70
[2018-10-11] MEDS: ATORVASTATIN 40 MG TAB PO SCH (21:09)
[2018-10-11] MEDS: LOSARTAN POTASSIUM 25 MG TAB PO SCH (21:09)
[2018-10-11] MEDS: GABAPENTIN 100 MG CAP PO SCH (21:09)
--- NOTE | 2018-10-11 21:10 | NUR ---
Received phone call from Dr. Keron Issa and confirmed he will perform another debridement on right great toe tomorrow (10/12/18).
--- NOTE | 2018-10-11 22:58 | NUR ---
Patient signed consent form for the procedure (debridement of right great toe) tomorrow.
[2018-10-12] VITALS (7 sets, daily range): BP systolic 129–154; BP diastolic 60–77
[2018-10-12] MEDS: PIPER-TAZ 3.375 GM 50 ML IV SCH ×3 (02:15→17:00)
[2018-10-12] MEDS: LEVOTHYROXINE SODIUM 50 MCG TAB PO SCH (06:06)
[2018-10-12] MEDS: INSULIN LISPRO 100 UNIT/1 ML 3ML VIAL SQ SCH ×4 (07:30→22:05)
--- NOTE | 2018-10-12 09:00 | NUR ---
Pt received resting in bed with at bedside. Dr. Issa assisted with bedside debridement of right great toe. Pain medication offered but pt refused. Emotional support given. Call tucker within reach. Will monitor
[2018-10-12] MEDS: INSULIN ASPART 70/30 100 UNITS/ML VIAL SC SCH ×2 (09:08→17:15)
[2018-10-12] MEDS: ASPIRIN 81 MG CHEW TAB PO SCH (09:08)
[2018-10-12] MEDS: CLOPIDOGREL BISULFATE 75 MG TAB PO SCH (09:09)
[2018-10-12] MEDS: METOPROLOL SUCCINATE 25 MG TAB XL PO SCH (09:09)
[2018-10-12] MEDS: PRIMIDONE 50 MG TAB PO SCH ×2 (09:09→16:28)
--- NOTE | 2018-10-12 09:20 | Progress Note ---
DATE: October 12, 2018 SUBJECTIVE: Patient at bedside accompanied by spouse. Doing well. Denies any history of fever, chills, nausea, or vomiting. OBJECTIVE VITALS: Afebrile, pulse rate 65, respirations 18, blood pressure 131/66, O2 saturation 96%. EXTREMITIES: Ulceration to the right great toe continues to improve. Decreased cellulitis to the dorsal aspect. Ulcer down to bone. Bone felt through the ulceration site distally. Skin temperature warm to touch on this date. No cyanosis noted. LABS: Noted. Has a white blood cell count of 7.14, hemoglobin 13.6. ASSESSMENT: Grade 4 ulcer with osteomyelitis with bone exposed. PLAN: Sharp excisional debridement of the ulcer was carried down to bone. Some bone was scraped until good viable bleeding tissue was achieved. Sterile dressings applied. Will continue IV Zosyn and vancomycin. Continue local wound care with Santyl followed by diluted wet-to-dry Betadine. Continue offloading. Continue to follow. Job#: [id number] PA
--- NOTE | 2018-10-12 14:29 | Progress Note ---
DATE: October 12, 2018 CARDIOLOGY PROGRESS NOTE SUBJECTIVE: No new complaints. OBJECTIVE VITAL SIGNS: Temperature 97.5, heart rate 72, blood pressure 154/76, respiratory rate 22, O2 sat 99% room air. GENERAL: In no acute distress. Alert. NECK: No JVD. CHEST: Clear to auscultation. CARDIOVASCULAR: Regular rate and rhythm. Normal S1 and S2. No S3, no S4. No murmurs or rubs. ABDOMEN: Soft, nontender, nondistended. EXTREMITIES: No cyanosis, clubbing or edema. Right foot covered with dressings. CARDIOVASCULAR MEDICATIONS: Reviewed. 1. Atorvastatin 40 mg nightly. 2. Aspirin 81 mg daily. 3. Metoprolol succinate 25 mg daily. 4. Clopidogrel 75 mg daily. 5. Zosyn and vancomycin. STUDIES: Reviewed. Sodium 138, potassium 4.6, chloride 102, bicarbonate 27, BUN 12, creatinine 1.02, glucose 214. White blood cells 9.14, hemoglobin 13.6, platelets 217. AST 14, ALT 18, alk phos 62. ASSESSMENT 1. Peripheral arterial disease status post right lower extremity revascularization. 2. Hypertension. 3. Diabetes mellitus. 4. Dyslipidemia. 5. Neuropathy. 6. Hypothyroidism. RECOMMENDATIONS 1. Up-titrate metoprolol to 50 mg daily. 2. Continue dual antiplatelet therapy. 3. Continue atorvastatin and losartan. 4. Continue wound care and antibiotics. Job#: [id number] BHASKAR
[2018-10-12] MEDS ORDERED: VANCOMYCIN 1GM/NS 250 ML 250 ML IV SCH (17:00)
--- NOTE | 2018-10-12 18:23 | NUR ---
Pt resting comfortably in bed with at bedside. Plan for possible discharge tomorrow. Emotional support given. Will endorse to next shift
--- NOTE | 2018-10-12 19:03 | NUR ---
Patient visited in room during nursing rounds. Patient alert and oriented x3. at bedside. S/P debridement on right big toe. Site covered with gauze and kerlix and appear clean and dry. Patient denies any pain but states he feels sleepy. Explained to patient sleepiness might be attributed to topical anesthesia used by MD during debridement procedure. Will monitor patient closely.
[2018-10-12] MEDS: ATORVASTATIN 40 MG TAB PO SCH (22:03)
[2018-10-12] MEDS: GABAPENTIN 100 MG CAP PO SCH (22:03)
[2018-10-12] MEDS: LOSARTAN POTASSIUM 25 MG TAB PO SCH (22:03)
[2018-10-13] VITALS (9 sets, daily range): BP systolic 121–184; BP diastolic 60–82
[2018-10-13] MEDS: PIPER-TAZ 3.375 GM 50 ML IV SCH (02:00)
[2018-10-13] MEDS: LEVOTHYROXINE SODIUM 50 MCG TAB PO SCH (06:20)
--- NOTE | 2018-10-13 07:20 | NUR ---
MD IN TO SEE PATIENT, DRESSING REMOVED FROM RIGHT GREAT TOE, PATIENT BLEEDING, ORDER RECEIVED TO APPLIED PRESSURE DRESSING. DRESSING APPLIED ORDERED. PATIENT IN BED WITH CALL LIGHT AT REACH. FAMILY MEMBER AT BED SIDE. WILL CLOSELY MONITOR.
[2018-10-13] MEDS: INSULIN LISPRO 100 UNIT/1 ML 3ML VIAL SQ SCH ×4 (07:30→21:00)
[2018-10-13] MEDS: INSULIN ASPART 70/30 100 UNITS/ML VIAL SC SCH ×2 (07:30→17:20)
[2018-10-13] MEDS ORDERED: CEFEPIME HCL 1 GM VIAL IV SCH (07:45)
[2018-10-13] MEDS ORDERED: AMPICILLIN SOD 1 GM/NS 50ML 50 ML IV SCH ×2 (08:00→11:00)
[2018-10-13] MEDS ORDERED: METOPROLOL SUCCINATE 25 MG TAB XL PO SCH (09:00)
[2018-10-13] MEDS: ASPIRIN 81 MG CHEW TAB PO SCH (09:15)
[2018-10-13] MEDS: PRIMIDONE 50 MG TAB PO SCH ×2 (09:15→17:17)
[2018-10-13] MEDS: CLOPIDOGREL BISULFATE 75 MG TAB PO SCH (09:15)
[2018-10-13] MEDS: METOPROLOL SUCCINATE 50 MG TAB XL PO SCH (09:15)
--- NOTE | 2018-10-13 09:23 | Progress Note ---
DATE: October 13, 2018 SUBJECTIVE: Patient seen at bedside, accompanied by nurse with Dr. Munroe being present. Doing well. Denies any history of fever, chills, nausea, or vomiting. OBJECTIVE: VITAL SIGNS: Afebrile. Pulse rate 70, respiration 18, blood pressure 121/60, O2 saturation 96%. EXTREMITIES: Ulceration to distal aspect of the right great toe continues to improve. Granulation tissue noted. Bone felt through the ulceration site. Ulcer is approximately 1.5 to 2 cm in diameter. Decreased cellulitis and decreased edema. Pedal pulses are diminished. LABS: Showed a white blood cell count of 7.14. ASSESSMENT: Peripheral arterial disease with grade 4 ulcer, osteomyelitis, responding to local wound care, intravenous antibiotics, and serial debridements. PLAN: Will continue Santyl, followed by dilute wet-to-dry Betadine. Continue IV antibiotics. Continue offloading. Patient continues responding. Possible discharge date will be Thursday depending on progression of treatment. Job#: [id number]
[2018-10-13] MEDS: CEFEPIME 1GM/NS 0.9% 50 ML 50 ML IV SCH ×3 (09:30→21:56)
--- NOTE | 2018-10-13 11:32 | NUR ---
PATIENT SITTING UP IN BED WATCHING TV. OLD AORTOGRAM SITE TO LEFT GROIN INTACT AND OPEN TO AIR. BED IN LOWER POSITION, CALL LIGHT AT REACH.
[2018-10-13] MEDS: AMPICILLIN SOD 1 GM/NS 50ML 50 ML IV SCH ×2 (12:29→20:54)
--- NOTE | 2018-10-13 13:46 | NUR ---
Nutrition Screen Note RD Recommendation for Physician: - Continue ADA diet as ordered - Pt and family are not interested in diet education 10/06 Plan of Care: RD following, monitoring for tolerance and adequacy Nutrition reason for involvement: Follow up Primary Diagnose(s): 1. Peripheral arterial disease with cellulitis to the dorsal aspect of the right foot. 2. Pregangrenous changes noted. 3. Diabetic neuropathy with mild hallux valgus deformity. PMH: Diabetes, on insulin therapy, hypertension, hypothyroidism, diabetic neuropathy. Ht: 69in Wt: 190lb 10/05 admit weight; 188lb 10/13 BMI: 28.1kg/m2 IBW: 160lb RD Assessment: (10/13) Chart reviewed. Pt had I&D of his R foot today. Visited pt in the room. Pt is awake, alert and in no acute distress. Pt reports eating very well with ~75-100% recorded PO intake. No GI complains noted. LBM 10/12. Will continue to monitor and follow. (10/06) Chart reviewed. Labs and meds reviewed. 73 yo M, who is admitted for R foot cellulitis and infection. During my visit, pt reports good appetite and denies eating less than usual HEALTH CARE / MEDICAL JOB TITLES. No GI complains noted. LBM 10/06. Pt denies any chewing or swallowing difficulty. No recent weight loss reported. Pt has had hx of DM for over 30years and has been f/u with his community dietitian for DM management. Pt and family are not interested in any further education. Will continue to monitor and follow. Current Diet: ADA diet Malnutrition Evaluation (10/06/2018) The patient does not meet criteria for a specified degree of malnutrition at this time. Will re-evaluate at follow-up as appropriate. Diet Education Needs Assessment: Diet education indicated, pt and family are not interested. Nutrition Care Level: low Signed: Nevaeh Viveros, MS, RD, LD
--- NOTE | 2018-10-13 13:50 | Progress Note ---
DATE: October 13, 2018 CARDIOLOGY PROGRESS NOTE SUBJECTIVE: No new complaints. Denies any chest discomfort or shortness of breath. OBJECTIVE VITAL SIGNS: Temperature 98.2, heart rate 68, blood pressure 137/69, respiratory rate 18, O2 sat 96% at room air.. GENERAL: In no acute distress. Alert, active. NECK: No JVD. CHEST: Clear to auscultation. CARDIOVASCULAR: Regular rate and rhythm. Normal S1 and S2. No S3, no S4. ABDOMEN: Soft, nontender. EXTREMITIES: No edema. Right foot covered with dressings. CARDIOVASCULAR MEDICATIONS: Reviewed. 1. Aspirin 81 mg daily. 2. Clopidogrel 75 mg daily. 3. Losartan 50 mg nightly. 4. Atorvastatin 40 mg nightly. 5. Metoprolol succinate 50 mg daily. 6. Cefepime and ampicillin antibiotics. STUDIES: Reviewed. Sodium 138, potassium 4.3, chloride 102, bicarbonate 27, BUN 12, creatinine is 1.02, glucose 214. White blood cells 9.1, hemoglobin 13.6, platelets 217. AST 14, ALT 18, alk phos 62. ASSESSMENT 1. Peripheral arterial disease status post right lower extremity arterial revascularization. 2. Hypertension. 3. Dyslipidemia. 4. Diabetes mellitus. 5. Right 1st toe ulcer, improving. RECOMMENDATIONS 1. Continue current antibiotic therapy and podiatry care. 2. Continue current cardiovascular medications and monitor blood pressure response to recent up-titration of beta patricia. Job#: [id number] EV
--- NOTE | 2018-10-13 15:44 | NUR ---
PATIENT IN BED TALKING TO FAMILY MEMBER VISITING, NO S/S OF DISCOMFORT NOTED. DRESSING INTACT TO RIGHT FOOT, NO BLEEDING NOTED. CALL LIGHT AT REACH.
--- NOTE | 2018-10-13 19:05 | NUR ---
Received pt in bed watching tv with spouse at bedside. No S/S of resp distress. Denies pain at this time. Call light within reach and instructed to call for assistance. Pt and spouse verbalized understanding.
[2018-10-13] MEDS: GABAPENTIN 100 MG CAP PO SCH (20:54)
[2018-10-13] MEDS: LOSARTAN POTASSIUM 25 MG TAB PO SCH (20:54)
[2018-10-13] MEDS: ATORVASTATIN 40 MG TAB PO SCH (20:54)
[2018-10-14] VITALS (9 sets, daily range): BP systolic 114–139; BP diastolic 58–70
[2018-10-14] MEDS: AMPICILLIN SOD 1 GM/NS 50ML 50 ML IV SCH ×3 (04:05→20:58)
[2018-10-14] MEDS: CEFEPIME 1GM/NS 0.9% 50 ML 50 ML IV SCH ×3 (06:01→21:57)
[2018-10-14] MEDS: LEVOTHYROXINE SODIUM 50 MCG TAB PO SCH (06:01)
--- NOTE | 2018-10-14 07:14 | NUR ---
PATIENT IN BED RESTING WITH NO RESPIRATORY DISTRESS. DRESSING DRY AND INTACT TO RIGHT FOOT. BED IN LOWER POSITION, CALL LIGHT AT REACH.
[2018-10-14] MEDS: INSULIN ASPART 70/30 100 UNITS/ML VIAL SC SCH ×2 (07:30→17:00)
[2018-10-14] MEDS: INSULIN LISPRO 100 UNIT/1 ML 3ML VIAL SQ SCH ×4 (07:30→21:00)
[2018-10-14] MEDS: ASPIRIN 81 MG CHEW TAB PO SCH (09:14)
[2018-10-14] MEDS: PRIMIDONE 50 MG TAB PO SCH ×2 (09:14→17:19)
[2018-10-14] MEDS: CLOPIDOGREL BISULFATE 75 MG TAB PO SCH (09:14)
[2018-10-14] MEDS: METOPROLOL SUCCINATE 50 MG TAB XL PO SCH (09:14)
[2018-10-14] MEDS: COLLAGENASE 5 GM TUBE TOP SCH (10:00)
--- NOTE | 2018-10-14 10:11 | Progress Note ---
DATE: October 14, 2018 SUBJECTIVE: Patient seen at bedside. Doing better. Seen accompanied by spouse. Denies any history of fever, chills, nausea, or vomiting. OBJECTIVE VITAL SIGNS: Afebrile, pulse rate 65, respirations 18, blood pressure 133/70, O2 saturation 95%. EXTREMITIES: Ulceration to the distal aspect of the right great toe continues to improve. Still some bone felt to the ulceration. Granular fibrotic tissue. Skin color is starting to become normal. Decreased edema to the right foot. Pedal pulses are diminished, but skin temperature is warm to touch. LABS: Noted. Has a white blood cell count of 7.14, hemoglobin 13.6. ASSESSMENT: Grade 4 ulcer with osteomyelitis, right great toe. PLAN: Will continue IV antibiotics. Continue local wound care. Continue off loading. Will continue to follow. Job#: [id number] UT
--- NOTE | 2018-10-14 10:41 | NUR ---
DRESSING CHANGED TO RIGHT GREAT TOE ORDERED, PATIENT TOLERATED PROCEDURE WELL. BED IN LOWER POSITION, CALL LIGHT AT REACH.
--- NOTE | 2018-10-14 15:25 | NUR ---
URINAL WITH 700CC OF YELLOW URINE, EMPTIED AND CLEANSED. PATIENT IN BED TALKING ON THE PHONE, CALL LIGHT AT REACH.
--- NOTE | 2018-10-14 17:59 | Progress Note ---
DATE: October 14, 2018 CARDIOLOGY PROGRESS NOTE SUBJECTIVE: No new complaints today. OBJECTIVE VITALS: Temperature 97.7, heart rate 76, blood pressure 132/68, respiratory rate 18, O2 sat 96%. GENERAL: In no acute distress. Alert and active. NECK: No JVD. CHEST: Clear to auscultation. CARDIOVASCULAR: Regular rate and rhythm. Normal S1 and S2. No S3. No S4. ABDOMEN: Soft and nontender. EXTREMITIES: Trace edema. Right foot wound covered with dressing. CARDIOVASCULAR MEDICATIONS: Reviewed. 1. Aspirin 81 mg daily. 2. Clopidogrel 75 mg daily. 3. Cefepime and ampicillin antibiotics. 4. Atorvastatin 40 mg at bedtime. 5. Metoprolol succinate 50 mg daily. STUDIES: Reviewed. Potassium 4.3, chloride 102, sodium 138, bicarbonate 27, BUN 12, creatinine 1.02, glucose 214. Hemoglobin 13.6 and platelets 217,000. White blood cells 7.1. AST 14, ALT 18. ASSESSMENT 1. Right foot cellulitis. 2. Peripheral arterial disease: Status post revascularization of the right lower extremity. 3. Diabetes mellitus, type 2. 4. Hypothyroidism. 5. Hypertension. 6. Dyslipidemia. RECOMMENDATIONS 1. Continue current cardiovascular medications and monitor blood pressure response to recent antihypertensive medication changes. 2. As outpatient, will follow closely. Proceed with further cardiovascular evaluation. The patient is high risk for cardiovascular outcomes until risk factors optimized. This has been extensively discussed. The patient is encouraged to take active thought in life until intervention. Job#: [id number] CE
--- NOTE | 2018-10-14 19:10 | NUR ---
Received pt in bed watching tv with spouse at bedside. No S/S of resp distress. Denies pain at this time. Noted dressing to R foot C,D,I. Call light within reach and instructed to call for assistance. Pt and spouse verbalized understanding.
[2018-10-14] MEDS: LOSARTAN POTASSIUM 25 MG TAB PO SCH (20:58)
[2018-10-14] MEDS: ATORVASTATIN 40 MG TAB PO SCH (20:58)
[2018-10-14] MEDS: GABAPENTIN 100 MG CAP PO SCH (20:58)
[2018-10-15 04:00] VITALS: BP 138/68
[2018-10-15] MEDS: AMPICILLIN SOD 1 GM/NS 50ML 50 ML IV SCH ×3 (04:20→20:00)
[2018-10-15] MEDS: CEFEPIME 1GM/NS 0.9% 50 ML 50 ML IV SCH ×3 (05:29→22:14)
[2018-10-15] MEDS: LEVOTHYROXINE SODIUM 50 MCG TAB PO SCH (06:08)
--- NOTE | 2018-10-15 07:01 | NUR ---
W TO D DRESSING CHANGE DONE TO R FOOT.
--- NOTE | 2018-10-15 07:35 | Progress Note ---
DATE: October 15, 2018 SUBJECTIVE: Patient at bedside accompanied by spouse. Doing well. Denies any history of fever, chills, nausea, or vomiting. OBJECTIVE VITALS: Afebrile. Vital signs stable. EXTREMITIES: Ulceration to the right great toe showing some granulation tissue noted. Still tracking down to bone. Bone felt to the ulceration. ASSESSMENT: Grade 4 ulcer, healing with granulation tissue with possible osteomyelitis. PLAN: Will continue IV antibiotics for a couple more days. Continue local care. If the patient continues to improve, may be discharged possibly on Thursday. Job#: [id number] MI
--- NOTE | 2018-10-15 07:35 | NUR ---
PT UP IN BED AWAKE ,DENIESPAIN ,NO DISTRESS NTOED
[2018-10-15] MEDS: INSULIN LISPRO 100 UNIT/1 ML 3ML VIAL SQ SCH ×4 (07:45→21:00)
[2018-10-15] MEDS: INSULIN ASPART 70/30 100 UNITS/ML VIAL SC SCH ×2 (07:45→17:00)
[2018-10-15 08:16] VITALS: BP 125/67
[2018-10-15] MEDS: ASPIRIN 81 MG CHEW TAB PO SCH (09:00)
[2018-10-15] MEDS: CLOPIDOGREL BISULFATE 75 MG TAB PO SCH (09:00)
[2018-10-15] MEDS: PRIMIDONE 50 MG TAB PO SCH ×2 (09:00→17:00)
[2018-10-15] MEDS: METOPROLOL SUCCINATE 50 MG TAB XL PO SCH (09:00)
[2018-10-15] MEDS: COLLAGENASE 5 GM TUBE TOP SCH (09:00)
[2018-10-15 12:49] VITALS: BP 141/73
[2018-10-15 16:47] VITALS: BP 139/72
--- NOTE | 2018-10-15 17:12 | NUR ---
PT UP IN BED ,DEIES PAIN DRSG TO FOOT CD&I
--- NOTE | 2018-10-15 19:37 | Progress Note ---
DATE: October 15, 2018 CARDIOLOGY PROGRESS NOTE SUBJECTIVE: No new complaints. OBJECTIVE VITALS: Temperature 97.8, heart rate 74, blood pressure 139/72, respiratory rate 18, O2 sat 94% on room air. BMI is 28.6. GENERAL: In no acute distress. Alert. NECK: No JVD. CHEST: Clear to auscultation. CARDIOVASCULAR: Regular rate and rhythm. Normal S1 and S2. No S3 or S4. ABDOMEN: Soft and nontender. EXTREMITIES: Trace edema. Right foot wound covered with dressing. CARDIOVASCULAR MEDICATIONS: Have been reviewed. 1. Metoprolol succinate 50 mg daily. 2. Aspirin 81 mg daily. 3. Clopidogrel 75 mg daily. 4. Atorvastatin 40 mg at bedtime. 5. Ampicillin and cefepime antibiotics. 6. Losartan 50 mg daily. STUDIES: Reviewed. Sodium 138, potassium 4.3, chloride 102, bicarbonate 27, BUN 12, creatinine 1.02, glucose 214. White blood cell 7.1, hemoglobin 13.6, platelets 217. AST 14, ALT 18. ASSESSMENT 1. Peripheral arterial disease, status post right lower extremity revascularization for left first toe wound, now improving. 2. Diabetes mellitus. 3. Hypertension. 4. Dyslipidemia. RECOMMENDATIONS 1. Continue current cardiovascular medications. 2. Continue wound care and antibiotics. 3. Outpatient followup upon discharge has been discussed with patient. Job#: [id number] CARLIN
[2018-10-15 20:00] VITALS: BP 152/90
--- NOTE | 2018-10-15 20:00 | NUR ---
RECEIVED PT IN BD AOX3 . RT FOOT WITH DRESSING .LEFT HAND 20G S/L .DENIES PAIN FAMILY AT THE BEDSIDE .CALL LIGHT WITH IN REACH .CONTINUE TO MONITOR
[2018-10-15] MEDS: GABAPENTIN 100 MG CAP PO SCH (22:14)
[2018-10-15] MEDS: LOSARTAN POTASSIUM 25 MG TAB PO SCH (22:14)
[2018-10-15] MEDS: ATORVASTATIN 40 MG TAB PO SCH (22:14)
[2018-10-16] VITALS (8 sets, daily range): BP systolic 129–163; BP diastolic 62–90
[2018-10-16] MEDS: AMPICILLIN SOD 1 GM/NS 50ML 50 ML IV SCH ×3 (04:17→22:00)
[2018-10-16] MEDS ORDERED: SODIUM CHLORIDE 0.9% 250ML 250 ML ONE (05:46)
[2018-10-16] MEDS: CEFEPIME 1GM/NS 0.9% 50 ML 50 ML IV SCH ×4 (05:49→23:00)
[2018-10-16] MEDS: LEVOTHYROXINE SODIUM 50 MCG TAB PO SCH (05:49)
--- NOTE | 2018-10-16 07:06 | NUR ---
PT RESTED DURING THE NIGHT AND DENIES PAIN FAMILY AT THE BEDSIDE .CALL LIGHT WITH IN REACH
[2018-10-16] MEDS: INSULIN LISPRO 100 UNIT/1 ML 3ML VIAL SQ SCH ×4 (07:30→22:21)
[2018-10-16] MEDS: INSULIN ASPART 70/30 100 UNITS/ML VIAL SC SCH ×2 (07:30→17:00)
--- NOTE | 2018-10-16 07:30 | NUR ---
PT IN BED SLEEPING NO S/S DISCOMFORT
[2018-10-16] MEDS: ASPIRIN 81 MG CHEW TAB PO SCH (08:30)
[2018-10-16] MEDS: PRIMIDONE 50 MG TAB PO SCH ×2 (08:30→17:00)
[2018-10-16] MEDS: CLOPIDOGREL BISULFATE 75 MG TAB PO SCH (08:30)
[2018-10-16] MEDS: METOPROLOL SUCCINATE 50 MG TAB XL PO SCH (08:30)
[2018-10-16] MEDS: COLLAGENASE 5 GM TUBE TOP SCH (10:30)
[2018-10-16 11:48] LABS: BASOPHILS # (AUTO) 0.1 (0.0-0.1); BASOPHILS % 0.7 % (0.0-1.0); EOSINOPHILS # (AUTO) 0.4 (0.0-0.4); EOSINOPHILS % 5.1 % (0.0-6.0); HEMOGLOBIN 14.1 g/dL (14.0-18.0); LYMPHOCYTES % 12.7 % (18.0-39.1); MEAN CORPUSCULAR HEMOGLOBIN 30.1 pg (28-32); MEAN CORPUSCULAR HGB CONC 33.6 g/dL (31-35); MEAN CORPUSCULAR VOLUME 89.6 fL (81-99); MONOCYTES # (AUTO) 0.9 (0.2-0.8); MONOCYTES % 11.5 % (4.4-11.3); NEUTROPHILS # (AUTO) 5.3 (2.1-6.9); NEUTROPHILS % 69.6 % (38.7-80.0); PLATELET COUNT 217 x10e3/uL (140-360); RED BLOOD COUNT 4.69 x10e6/uL (4.3-5.7); RED CELL DISTRIBUTION WIDTH 12.7 % (11.7-14.4)
[2018-10-16 12:11] LABS: ANION GAP 11.4 mmol/L (8-16); BLOOD UREA NITROGEN 17 mg/dL (7-26); BUN/CREATININE RATIO 18 (6-25); CALCIUM 9.4 mg/dL (8.4-10.2); CARBON DIOXIDE 30 mmol/L (22-29); CHLORIDE 100 mmol/L (98-107); CREATININE, SERUM 0.96 mg/dL (0.72-1.25); EST GLOMERULAR FILTRATION RATE > 60 ML/MIN (60-); GLUCOSE 149 mg/dL (74-118); POTASSIUM 4.4 mmol/L (3.5-5.1); SODIUM 137 mmol/L (136-145)
[2018-10-16] MEDS ORDERED: AMLODIPINE BESYLATE 5 MG TAB PO ONE (16:15)
--- NOTE | 2018-10-16 17:00 | NUR ---
DR SRIVASTAVA HERE ,PT UP IN BED DENIES PAIN,GLUCOSE 292 INSULIN GIVEN PER S/S
--- NOTE | 2018-10-16 17:41 | Progress Note ---
DATE: October 16, 2018 SUBJECTIVE: Patient at bedside, feeling much better. Ulceration to the right great toe continues to improve down to very close to bone. Granulation tissue noted. No drainage. Skin temperature is symmetrical and decreased edema noted. ASSESSMENT: Grade IV ulcer, distal aspect right great toe with possible osteomyelitis with diabetic neuropathy and peripheral artery disease with skin temperature warm to touch. PLAN: We will continue IV antibiotics. Continue local wound care. Patient may possibly be discharged tomorrow. Job#: [id number] CARLIN
--- NOTE | 2018-10-16 18:31 | Progress Note ---
DATE: October 16, 2018 CARDIOLOGY PROGRESS NOTE SUBJECTIVE: No new complaints. OBJECTIVE VITAL SIGNS: Temperature 97.6, heart rate 61, respiratory rate 20, blood pressure 151/71, O2 sat 98% on room air. GENERAL: In no acute distress. Alert, active. NECK: No JVD. CHEST: Clear to auscultation. CARDIOVASCULAR: Regular rate and rhythm. Normal S1 and S2. No S3. No S4. No murmurs or rubs. ABDOMEN: Soft, nontender. EXTREMITIES: Trace edema. Right foot covered with dressings. CARDIOVASCULAR MEDICATIONS: Reviewed. STUDIES: Potassium 4.4, creatinine 0.9. Hemoglobin 14.1. AST 14, ALT 18. ASSESSMENT 1. Peripheral arterial disease, status post revascularization of the right lower extremity. 2. Right first toe ulcer, improving. 3. Diabetes mellitus type 2. 4. Hypertension, uncontrolled. 5. Dyslipidemia. RECOMMENDATIONS: Add amlodipine 5 mg daily and continue rest of current cardiovascular medications. Job#: [id number] CHARO
--- NOTE | 2018-10-16 19:05 | NUR ---
Patient visited in room during nursing rounds. Patient alert and oriented x3. at bedside. Right great toe covered with medicated gauze and kerlix appearing clean and dry. Patient on scheduled IV antibiotics. Patient ambulatory and denies pain or discomfort at this time. Will continue to monitor.
[2018-10-16] MEDS: GABAPENTIN 100 MG CAP PO SCH (22:00)
[2018-10-16] MEDS: ATORVASTATIN 40 MG TAB PO SCH (22:00)
[2018-10-16] MEDS: LOSARTAN POTASSIUM 25 MG TAB PO SCH (22:00)
[2018-10-17 01:05] VITALS: BP 145/73
[2018-10-17 05:48] VITALS: BP 123/64
[2018-10-17] MEDS ORDERED: AMPICILLIN SOD 1 GM/NS 50ML 50 ML IV SCH (06:00)
[2018-10-17] MEDS: LEVOTHYROXINE SODIUM 50 MCG TAB PO SCH (06:30)
[2018-10-17] MEDS ORDERED: CEFEPIME 1GM/NS 0.9% 50 ML 50 ML IV SCH ×2 (08:00)
[2018-10-17] MEDS: INSULIN ASPART 70/30 100 UNITS/ML VIAL SC SCH (08:10)
[2018-10-17] MEDS: INSULIN LISPRO 100 UNIT/1 ML 3ML VIAL SQ SCH ×2 (08:10→12:27)
[2018-10-17 08:28] VITALS: BP 133/67
[2018-10-17 08:31] VITALS: BP 133/67
[2018-10-17] MEDS: CLOPIDOGREL BISULFATE 75 MG TAB PO SCH (08:31)
[2018-10-17] MEDS: METOPROLOL SUCCINATE 50 MG TAB XL PO SCH (08:31)
[2018-10-17] MEDS: PRIMIDONE 50 MG TAB PO SCH (08:31)
[2018-10-17] MEDS: ASPIRIN 81 MG CHEW TAB PO SCH (08:31)
[2018-10-17] MEDS ORDERED: AMLODIPINE BESYLATE 5 MG TAB PO SCH (09:00)
[2018-10-17] MEDS: COLLAGENASE 5 GM TUBE TOP SCH (10:05)
--- NOTE | 2018-10-17 13:05 | Progress Note ---
DATE: October 17, 2018 SUBJECTIVE: Patient seen at bedside, ready to go home. Doing well. Denies any history of fever, chills, nausea, or vomiting. OBJECTIVE VITAL SIGNS: Afebrile, pulse rate 78, respirations 18, blood pressure 133/67, O2 saturation 97%. EXTREMITIES: Ulceration down to bone, bone felt through the ulceration site. Ulcer approximately 2 to 2.5 cm in diameter with some fibrosis and necrosis noted down to bone. LABS: Noted. Has a white blood cell count of 7.6. ASSESSMENT: Osteomyelitis with grade 4 ulcer, cellulitis, diabetic neuropathy with peripheral arterial disease with skin temperature warm to touch. Responding to antibiotics and local wound care. PLAN: Sharp excisional debridement of the ulcer was carried down to bone. Bone was rasped via sharp dissection. Bleeding tissue was achieved. Sterile dressing was applied. We will continue Santyl, diluted wet-to-dry Betadine at home. Prescription for doxycycline will be given upon discharge, 100 mg to be taken twice a day. Patient would follow up towards the end of the week. We will continue debridement to try to salvage toe and foot. Job#: [id number] SHAHLA
--- NOTE | 2018-10-17 13:46 | Discharge Summary ---
PRIMARY CARE PHYSICIAN: Dr. Gilles Celis. CONSULTANTS 1. Dr. Keron Issa. 2. Dr. Alfredo Galan. FINAL DIAGNOSES 1. Right toe infected diabetic foot abscess, status post right great toe debridement. The debridement is involving the bone, there is no osteomyelitis. 2. Peripheral vascular disease, status post angiogram with intervention, angioplasty and thrombectomy of the right peroneal artery. 3. Diabetes type 2, on insulin therapy. Glycohemoglobin A1c was 7.9. SUMMARY: Patient is a 73-year-old male with infected right great toe diabetic toe ulcer associated with infection and abscess. The patient did have partial toe debridement with scraping of the bone; however, there was no osteomyelitis. Patient has received IV antibiotics during hospitalization with cefepime and ampicillin. The microbiology grew Pseudomonas aeruginosa and Enterococcus faecalis. The patient is stable. He has received appropriate antibiotics. He is stable at this time. Patient will be discharged home with ampicillin 500 mg 3 times a day for 10 days, doxycycline monohydrate 100 mg twice a day for 15 days, and Cipro 500 mg twice a day for 7 days. The patient is otherwise stable at this time. She is doing well. The wound care has been given to instruction. He will be also discharged home with medication for his circulation status post angioplasty including Plavix 75 mg daily, Lipitor 40 mg q.h.s., and Ecotrin 81 mg daily. His blood pressure is better controlled with Norvasc and Toprol XL will also give the patient as well. Currently, the patient is stable, discharged home with the following instructions: 1. Wound care instructions from Dr. Keron Issa. 2. Medications including doxycycline mononitrate 100 mg twice a day for 15 days, ampicillin 500 mg 3 times a day for 10 days, Cipro 500 mg b.i.d. for 10 days, Tylenol No. 3 p.r.n. for pain, Plavix 75 mg daily, Norvasc 5 mg daily, Toprol XL 50 mg nightly, Lipitor 40 mg nightly, and Ecotrin 81 mg daily. All instructions were given. Patient is to follow up with primary care physician, Dr. Gilles Celis next week. Job#: [id number] LENNOX
[2018-10-17] MEDS ORDERED: DOXYCYCLINE HY100 MG PO (14:06)
[2018-10-17] MEDS ORDERED: PLAVIX75 MG PO (14:07)
[2018-10-17] MEDS ORDERED: TYLENOL WITH C1 EACH PO (14:07)
[2018-10-17] MEDS ORDERED: NORVASC5 MG PO (14:08)
[2018-10-17] MEDS ORDERED: TOPROL XL50 MG PO (14:09)
[2018-10-17] MEDS ORDERED: LIPITOR20 MG PO (14:10)
[2018-10-17] MEDS ORDERED: ECOTRIN81 MG PO (14:11)
[2018-10-17] MEDS ORDERED: CIPRO500 MG PO (14:12)
[2018-10-17] MEDS ORDERED: AMPICILLIN TRI500 MG PO (14:16)
[2018-10-17 14:18] VITALS: BP 138/75
--- NOTE | 2018-11-02 17:25 | Operative Report ---
DATE OF PROCEDURE: October 08, 2018 PERIPHERAL ANGIOGRAPHY AND INTERVENTION PROCEDURE INDICATION: Critical limb ischemia, peripheral arterial disease. PROCEDURES PERFORMED 1. Abdominal aortogram. 2. Selective catheter placement from left common femoral artery to right common femoral artery. 3. Additional third-order catheter placement from left common femoral artery to right popliteal artery for additional angiography. 4. Right peroneal [employer] atherectomy with a Micro [place]. 5. Right peroneal percutaneous transluminal angioplasty with a 2.0 x 150 Ultraverse balloon. 6. Right anterior tibial percutaneous transluminal angioplasty with 2.5 x 40 and 2.5 x 120 Ultraverse balloons. 7. Left common femoral artery 6-Indian Angio-Seal closure. PROCEDURE COMPLICATIONS: None. ESTIMATED BLOOD LOSS: Less than 15 mL. PROCEDURE SUMMARY: After consent was obtained, patient was prepped and draped in a sterile fashion, and the left femoral site was locally infiltrated with 2% lidocaine. Access was obtained with a micropuncture, and an Omni Flush catheter was positioned into the distal descending abdominal aorta for angiography, revealing luminal irregularities throughout the distal descending abdominal aorta, renal arteries and iliac arteries bilaterally. The common femoral, profunda femoris and bilateral SFAs were patent with luminal irregularities. The right anterior tibial was 100% occluded with a long segment of stenosis. The peroneal artery was 90% stenosed. The posterior tibial artery was patent. The left posterior tibial artery and peroneal arteries as well as TP trunk were all patent. The left anterior tibial was 100% occluded proximal to distal. An up-and-over sheath 6 Indian in size was positioned in the right common femoral artery and then in an adequate position in the popliteal artery for a selective angiography with findings as described above. Intervention was then attempted with a wire used to cross the area of peroneal artery, and atherectomy was performed with a CSI 1.25 dina with a couple of passes at slow speed followed by peroneal CAP SIZER with a 2.0 x 150 balloon. Excellent angiographic results. After this the right anterior tibial artery was crossed with a Runthrough wire, and predilatation was performed with a 2.5 x 150 Ultraverse balloon, and an additional area of recoil was treated with a 2.5 x 40 Ultraverse balloon with excellent final angiographic results, reestablishment of 3-vessel runoff to the foot through the right lower extremity, ZO 3 flow, less than 10% residual stenosis across the right anterior tibial and right peroneal artery. CONCLUSION: Successful right peroneal [employer] atherectomy and percutaneous transluminal angioplasty and right anterior tibial percutaneous transluminal angioplasty. RECOMMENDATIONS: Aspirin and Plavix. Bed rest. Job#: [id number] EV
== END 2018-10-17 14:40 | disposition home or self-care (01) | DRG 271 ==
LOC: ER 12:51 → ERHOLD 18:37 → MED/SURG 19:07 → MED/SURG3 10-07 18:54
PROVIDERS: ADMIT Internal Medicine; ATTEND Internal Medicine
PROC: 047T3ZZ Dilation of Right Peroneal Artery, Percutaneous Approach (ICD-10-PCS; principal; 2018-10-08)
PROC: 04CT3ZZ Extirpation of Matter from Right Peroneal Artery, Percutaneous Approach (ICD-10-PCS; 2018-10-08)
PROC: 0JBQ0ZZ Excision of Right Foot Subcutaneous Tissue and Fascia, Open Approach (ICD-10-PCS; 2018-10-08)
PROC: 047P3ZZ Dilation of Right Anterior Tibial Artery, Percutaneous Approach (ICD-10-PCS; 2018-10-08)
PROC: B41D1ZZ Fluoroscopy of Aorta and Bilateral Lower Extremity Arteries using Low Osmolar Contrast (ICD-10-PCS; 2018-10-08)
PROC: 0HDRXZZ Extraction of Toe Nail, External Approach (ICD-10-PCS; 2018-10-08)
PROC: 0QBQ0ZZ Excision of Right Toe Phalanx, Open Approach (ICD-10-PCS; 2018-10-09)
PROC: 0QBQ0ZZ Excision of Right Toe Phalanx, Open Approach (ICD-10-PCS; 2018-10-12)
PROC: 0QBQ0ZZ Excision of Right Toe Phalanx, Open Approach (ICD-10-PCS; 2018-10-17)
DX: E11.51 Type 2 diabetes mellitus with diabetic peripheral angiopathy without gangrene (principal); L03.115 Cellulitis of right lower limb; L02.611 Cutaneous abscess of right foot; E11.621 Type 2 diabetes mellitus with foot ulcer; L97.519 Non-pressure chronic ulcer of other part of right foot with unspecified severity; I70.235 Atherosclerosis of native arteries of right leg with ulceration of other part of foot; E11.42 Type 2 diabetes mellitus with diabetic polyneuropathy; Z79.4 Long term (current) use of insulin; I10 Essential (primary) hypertension; E78.5 Hyperlipidemia, unspecified; L03.031 Cellulitis of right toe; B96.5 Pseudomonas (aeruginosa) (mallei) (pseudomallei) as the cause of diseases classified elsewhere; B95.2 Enterococcus as the cause of diseases classified elsewhere; B96.89 Other specified bacterial agents as the cause of diseases classified elsewhere; Z85.038 Personal history of other malignant neoplasm of large intestine; Z79.02 Long term (current) use of antithrombotics/antiplatelets; Z79.82 Long term (current) use of aspirin
CPT/HCPCS: 36247; 36415; 37186; 37229; 37232; 75625; 75716; 80048; 80053; 80061; 80202; 82948; 83036; 83605; 85025; 85651; 87040; 87071; 87075; 87186; 87205; 93926; 96361; 96367; 96372; 99284; C1725; C1769; J0290; J0692; J1650; J1815; J2001; J2250; J2270; J2405; J2543; J3370; J7030; J7050; Q9967

== ENCOUNTER 2019-07-01 20:20 | Inpatient (IN) | payer OTHER ==
[~2019-07-01] VITALS: Ht 167.6 cm; Wt 86.9 kg
[~2019-07-01 20:20] MED LIST: AMPICILLIN TRI500 MG PO; CIPRO500 MG PO; DOXYCYCLINE HY100 MG PO; ECOTRIN81 MG PO; GABAPENTIN100 MG PO; LEVOTHYROXINE50 MCG PO; LIPITOR20 MG PO; LOSARTAN POTASS25 MG PO; METFORMIN HCL500 MG PO; NORVASC5 MG PO; NOVOLOG MI100 UNIT/1 SQ; PLAVIX75 MG PO; PRIMIDONE50 MG PO; TOPROL XL50 MG PO; TYLENOL WITH C1 EACH PO
[2019-07-01 21:27] LABS: BASOPHILS % 0.2 % (0.0-1.0); EOSINOPHILS # (AUTO) 0.3 (0.0-0.4); EOSINOPHILS % 2.5 % (0.0-6.0); HEMATOCRIT 41.7 % (38.2-49.6); HEMOGLOBIN 14.1 g/dL (14.0-18.0); LYMPHOCYTES # (AUTO) 0.8 (1.0-3.2); LYMPHOCYTES % 7.4 % (18.0-39.1); MEAN CORPUSCULAR HEMOGLOBIN 30.5 pg (28-32); MEAN CORPUSCULAR HGB CONC 33.8 g/dL (31-35); MEAN CORPUSCULAR VOLUME 90.1 fL (81-99); MONOCYTES # (AUTO) 1.2 (0.2-0.8); MONOCYTES % 10.8 % (4.4-11.3); NEUTROPHILS # (AUTO) 8.9 (2.1-6.9); NEUTROPHILS % 78.9 % (38.7-80.0); PLATELET COUNT 215 x10e3/uL (140-360); RED BLOOD COUNT 4.63 x10e6/uL (4.3-5.7); RED CELL DISTRIBUTION WIDTH 12.5 % (11.7-14.4)
[2019-07-01 21:40] LABS: ALBUMIN/GLOBULIN RATIO 1.1 (0.8-2.0); ANION GAP 16.6 mmol/L (8-16); CALCIUM 10.2 mg/dL (8.4-10.2); CREATININE, SERUM 1.64 mg/dL (0.72-1.25); POTASSIUM 4.6 mmol/L (3.5-5.1)
[2019-07-01] MEDS ORDERED: DAILY VITE1 EACH PO (21:58)
[2019-07-01] MEDS ORDERED: ATORVASTATIN CA40 MG PO (21:58)
[2019-07-01] MEDS ORDERED: AMLODIPINE BESYL5 MG PO (21:58)
[2019-07-01] MEDS ORDERED: LOSARTAN POTASS50 MG PO (21:58)
[2019-07-01] MEDS ORDERED: METFORMIN HCL1000 MG PO (21:58)
[2019-07-01] MEDS ORDERED: NOVOLIN (21:58)
[2019-07-01] MEDS ORDERED: JARDIANCE PO (21:58)
[2019-07-01] MEDS ORDERED: MYSOLINE50 MG PO (21:58)
[2019-07-01] MEDS ORDERED: GABAPENTIN300 MG PO (21:58)
[2019-07-01] MEDS ORDERED: METOPROLOL SUCC25 MG PO (21:58)
[2019-07-01] MEDS ORDERED: XARELTO PO (21:58)
--- NOTE | 2019-07-01 22:04 | Diagnostic Imaging Report ---
Foot complete CPT code: 64005 Indication: Wound ^WOUND ^[id number] ^[id number] Technique: Portable A.P., oblique and lateral views of the right foot obtained. Comparison: 10/05/2018, MRI right foot 10/06/2018 Findings: The area of ulceration is not indicated or marked. Calcaneus is intact with prominent plantar and posterior spurs. The midfoot is intact without focal osseous lesions. Erosive changes of the distal tuft of the first digit have developed, the result of osteomyelitis. No periosteal new bone formation in this region. The remainder of the digit is intact. Well-defined lucency in the head of the proximal phalanx of the first digit is stable. The remainder of the digits are intact and normal in morphology without focal erosive changes. Diffuse arterial calcifications. No air or radiopaque foreign bodies in the soft tissues. IMPRESSION: No radiographic evidence of acute osteomyelitis. Sequela of osteomyelitis of the distal phalanx of the first digit. Signed by: Dr. Linda Tapia MD on 07/01/2019 10:00 PM
[2019-07-01] MEDS: VANCOMYCIN 1GM/NS 250 ML 250 ML IV SCH (22:30)
[2019-07-01 22:45] LABS: CLARITY,URINE CLEAR (CLEAR); COLOR,URINE YELLOW (YELLOW); KETONES,URINE NEGATIVE (NEGATIVE); LEUKOCYTE ESTERASE ,URINE NEGATIVE (NEGATIVE); NITRITE,URINE NEGATIVE (NEGATIVE); PROTEIN,URINE DIPSTICK NEGATIVE (NEGATIVE); URINE UROBILINOGEN 0.2 mg/dL (0.2 - 1)
[2019-07-01 22:46] LABS: BILIRUBIN,URINE NEGATIVE (NEGATIVE)
--- NOTE | 2019-07-01 22:50 | NUR ---
PT REPORTS HAS PROSTHETIC/KNEE REPLACEMENT R KNEE, DONE HERE IN SEPTEMBER 2018, MD AND RADIOLOGY AWARE
[2019-07-01 22:58] LABS: BACTERIA,URINE FEW /HPF; EPITHELIAL CELLS,URINE FEW /LPF; WBC,URINE (MAN) 0-5 /HPF (0-5)
--- NOTE | 2019-07-01 23:00 | NUR ---
pt gone to MRI. Vancomycin stopped for MRI
--- NOTE | 2019-07-01 23:30 | NUR ---
back from MRI. awake alert skin w/d resp nonlab. nad noted.
--- NOTE | 2019-07-01 23:43 | NUR ---
tele box 33 placed on patient
[2019-07-02] VITALS (10 sets, daily range): BP systolic 118–142; BP diastolic 68–83
[2019-07-02 05:31] LABS: BASOPHILS % 0.4 % (0.0-1.0); EOSINOPHILS # (AUTO) 0.2 (0.0-0.4); EOSINOPHILS % 2.9 % (0.0-6.0); HEMATOCRIT 37.7 % (38.2-49.6); HEMOGLOBIN 12.6 g/dL (14.0-18.0); LYMPHOCYTES # (AUTO) 1.2 (1.0-3.2); LYMPHOCYTES % 14.6 % (18.0-39.1); MEAN CORPUSCULAR HEMOGLOBIN 30.1 pg (28-32); MEAN CORPUSCULAR HGB CONC 33.4 g/dL (31-35); MEAN CORPUSCULAR VOLUME 90.2 fL (81-99); MONOCYTES # (AUTO) 1.1 (0.2-0.8); MONOCYTES % 13.5 % (4.4-11.3); NEUTROPHILS # (AUTO) 5.7 (2.1-6.9); NEUTROPHILS % 68.2 % (38.7-80.0); PLATELET COUNT 188 x10e3/uL (140-360); RED BLOOD COUNT 4.18 x10e6/uL (4.3-5.7); RED CELL DISTRIBUTION WIDTH 12.6 % (11.7-14.4)
[2019-07-02 05:55] LABS: ALANINE AMINOTRANSFERASE 14 IU/L (0-55); ALBUMIN 3.4 g/dL (3.5-5.0); ALBUMIN/GLOBULIN RATIO 1.1 (0.8-2.0); ALKALINE PHOSPHATASE 75 IU/L (40-150); ANION GAP 13.4 mmol/L (8-16); BLOOD UREA NITROGEN 29 mg/dL (7-26); BUN/CREATININE RATIO 25 (6-25); CALCIUM 9.6 mg/dL (8.4-10.2); CARBON DIOXIDE 25 mmol/L (22-29); CHLORIDE 104 mmol/L (98-107); CREATININE, SERUM 1.15 mg/dL (0.72-1.25); EST GLOMERULAR FILTRATION RATE > 60 ML/MIN (60-); GLUCOSE 126 mg/dL (74-118); POTASSIUM 4.4 mmol/L (3.5-5.1); SODIUM 138 mmol/L (136-145)
--- NOTE | 2019-07-02 07:00 | NUR ---
BEDSIDE SHIFT REPORT RECEIVED FROM THE MARKETING PROGRAM COORDINATOR RN. PT DENIES NEEDS AT THIS TIME.
[2019-07-02] MEDS ORDERED: COLLAGENASE 5 GM TUBE TOP SCH (09:00)
--- NOTE | 2019-07-02 14:20 | NUR ---
Nutrition Screen Note RD Recommendation for Physician: Continue diet as ordered Plan of Care: RD following, monitoring for tolerance and adequacy Nutrition reason for involvement: Nutrition Risk Trigger - MST Primary Diagnose(s): diabetes foot ulcer PMH: Hypothyroid, T2DM, HTN Ht:69 in Wt:184.5lb BMI:27.2 kg/m2 IBW:lb +/-10% RD Assessment: (07/02/2019) Chart reviewed. Labs and meds reviewed. Initial encounter with patient. Pt Denies any known food allergies, Nausea, Vomiting, or Diarrhea. Pt denies any difficulty chewing or swallowing. Eating well RETAIL COORDINATOR. Current Diet: 1800 ADA Malnutrition Evaluation (07/02/2019) The patient does not meet criteria for a specified degree of malnutrition at this time. Will re-evaluate at follow-up as appropriate. Diet Education Needs Assessment: Diet education not desired Nutrition Care Level: Low Signed: Tien Vasques RD, LD, [facility]
--- NOTE | 2019-07-02 15:42 | Consultation ---
DATE OF CONSULTATION: 07/02/2019 REASON FOR CONSULTATION: Ulceration to the right foot with the patient being an insulin-dependent diabetic. HISTORY OF PRESENT ILLNESS: This is a pleasant 74-year-old male who is well known to me from previous admissions, who relates that he has had an ulceration to the plantar aspect of right foot for more than two weeks now. He is currently denying any history of fever, chills, nausea, or vomiting, relates his foot started getting worse with cellulitis to the dorsal aspect ascending up to his knee. PAST MEDICAL HISTORY: Remarkable for insulin-dependent diabetes, hypertension, and hypercholesteremia with thyroid problems. PAST SURGICAL HISTORY: Remarkable for right great toe debridement. ALLERGIES: THE PATIENT DENIES. SOCIAL HISTORY: Denies any smoking, drinking, or recreational drug use. Does not work. FAMILY HISTORY: Noncontributory. CURRENT MEDICATIONS: Note listed in chart including IV vancomycin 1 g. We will continue 1 g every 24 hours. REVIEW OF SYSTEMS: CARDIAC: He is denying any palpitations or arrhythmias. RESPIRATORY: Denies any shortness of breath or productive cough. GASTROINTESTINAL: Denies any diarrhea or constipation. GENITOURINARY: Denies hematuria or problems with voiding. PHYSICAL EXAMINATION: VITAL SIGNS: Afebrile, pulse rate 78, respirations 20, blood pressure 133/74, and O2 saturation 98% Podiatric physical examination reveals the following: VASCULATURE: Pedal pulses of both the DP and PT are diminished. SKIN: Temperature warm to touch. CFT to all toes less than 5 seconds. NEUROLOGIC: There was a complete loss of protective sensation when utilizing [place] 5% monofilament wire. MUSCULOSKELETAL: Muscle mass to be asymmetrical. Some swelling noted to the right foot when compared to left. Muscle strength to be 4/5 to all muscle groups. DERMATOLOGICAL: There was a grade 3 ulcer, plantar aspect 5th metatarsophalangeal joint/the head measuring more than 2-3 cm in diameter, some necrosis noted possibly tracking down to bone. LABORATORY DATA: Labs noted. He has a white blood cell count dropping from 11.2 to 8.3, hemoglobin 12.6, hematocrit 37.7 with a platelet count of 188. He has a blood glucose of 97. ASSESSMENT: Possible osteomyelitis of 5th metatarsal head, right foot, grade 3 ulcer, diabetic neuropathy with cellulitis. PLAN: We will continue IV antibiotics with vancomycin. We will start Santyl followed by diluted wet-to-dry Betadine. The ulceration will be debrided tomorrow at bedside and deep cultures will be taken. We will treat the patient conservatively for now. The patient understands if not responsive following debridement, may end up needing a bone debridement, possible partial amputation of foot. MUSTAPHA Samuel/ESTEE /[id number]
[2019-07-02] MEDS ORDERED: HYDROCODONE/APAP 7.5MG-325MG 1 EA TAB PO PRN (16:15)
[2019-07-02] MEDS ORDERED: DEXTROSE 50% SYRINGE 50 ML IV PRN (16:15)
[2019-07-02] MEDS: INSULIN GLARGINE 100 UNITS/ML VIAL SQ SCH (17:20)
[2019-07-02] MEDS: INSULIN LISPRO 100 UNIT/1 ML 3ML VIAL SQ SCH ×2 (17:20→22:13)
[2019-07-02] MEDS: ENOXAPARIN SOD INJ 40 MG/0.4 ML SYR SC SCH (17:23)
[2019-07-02] MEDS: PRIMIDONE 50 MG TAB PO SCH (17:23)
[2019-07-02] MEDS: PIPER-TAZ 3.375 GM 50 ML IV SCH ×2 (17:23→23:58)
[2019-07-02] MEDS ORDERED: SODIUM CHLORIDE 0.9% 250ML 250 ML ONE (17:36)
--- NOTE | 2019-07-02 18:58 | NUR ---
BEDSIDE SHIFT REPORT GIVEN TO THE REPAIR WEAVER RN. PT DENIED FURTHER NEEDS.
--- NOTE | 2019-07-02 20:54 | History and Physical ---
PRIMARY CARE PHYSICIAN: Gilles Celis MD. PEARL DIGGER: Keron Issa DPM. CHIEF COMPLAINT: Right diabetic foot ulcer associated with a puncture wound due to the shoes. HISTORY OF PRESENT ILLNESS: 74-year-old male, approximately few weeks ago had an injury to the right foot. Did not think anything of it, but for the past week or so, per spouse, the patient having increase in swelling of the right foot with increasing redness. Apparently, he had a nail punctured through the shoes and then developed a small puncture. The patient is not carefully checking his foot on a daily basis and developed a significant increase in swelling, and by the time the noticed, it was bluish, swelling with an abscess and necrotic tissue along with redness along the dorsal surface of the right foot. The patient was admitted for further antibiotic treatment. PAST MEDICAL HISTORY: Diabetes type 2 both on oral medication and an insulin. Dyslipidemia, hypertension, and peripheral vascular disease on anticoagulant therapy. PAST SURGICAL HISTORY: Right foot surgery. SOCIAL HISTORY: The patient does not smoke or use alcohol. No regular drugs. ALLERGIES: NO KNOWN ALLERGIES. HOME MEDICATIONS: List is reviewed. REVIEW OF SYSTEMS: Right foot swelling and redness, but no significant pain due to diabetic neuropathy. PHYSICAL EXAMINATION: VITAL SIGNS: Temperature is 98, blood pressure 119/78, pulse rate 77, and respirations 18. GENERAL: The patient is not in acute distress. HEENT: Normocephalic and atraumatic. Anicteric. NECK: Supple grossly. PULMONARY: Clear. CARDIOVASCULAR: Regular rate and rhythm. ABDOMEN: Soft, unremarkable. EXTREMITIES: Right foot on the lateral bottom has superior area below the 5th toe, there is an open quarter-sized with necrotic tissue and fluffy tissue noticed, possible abscess. There is also spreading redness along the right dorsal surface of the foot as well. There has been no significant tenderness due to diabetic neuropathy. There is no drainage at this time. NEUROLOGIC: Diabetic neuropathy. Moving all extremities without any focal deficit. LABORATORY DATA: Sodium 138, potassium 4.4, chloride 104, bicarb 25, BUN 29, creatinine 1.16, and glucose 126. WBC is 8.4, hemoglobin 12.6, hematocrit 37.7, and platelets is 188. MRI of the right foot is pending. IMPRESSION: 1. Right infected diabetic foot ulcer on the right foot associated with a puncture wound to the shoes. 2. Multiple chronic baseline problems. PLAN: Zosyn, IV antibiotics, vancomycin. Sedimentation rate. The patient will need surgical intervention. Insulin sliding scale coverage. Home medication. We will hold metformin due to MRI. We will follow up on the patient's status. MD HOWIE Rangel/ESTEE /[id number]
[2019-07-02] MEDS: GABAPENTIN 300 MG CAP PO SCH (21:00)
[2019-07-02] MEDS: ATORVASTATIN 40 MG TAB PO SCH (21:00)
[2019-07-02] MEDS: METOPROLOL SUCCINATE 25 MG TAB XL PO SCH (21:00)
[2019-07-02] MEDS: VANCOMYCIN 1GM/NS 250 ML 250 ML IV SCH (21:01)
[2019-07-03] VITALS (9 sets, daily range): BP systolic 116–140; BP diastolic 71–84
[2019-07-03 05:10] LABS: BASOPHILS % 0.3 % (0.0-1.0); EOSINOPHILS # (AUTO) 0.2 (0.0-0.4); EOSINOPHILS % 1.6 % (0.0-6.0); HEMATOCRIT 39.4 % (38.2-49.6); HEMOGLOBIN 13.2 g/dL (14.0-18.0); LYMPHOCYTES # (AUTO) 0.7 (1.0-3.2); LYMPHOCYTES % 6.9 % (18.0-39.1); MEAN CORPUSCULAR HEMOGLOBIN 29.9 pg (28-32); MEAN CORPUSCULAR HGB CONC 33.5 g/dL (31-35); MEAN CORPUSCULAR VOLUME 89.1 fL (81-99); MONOCYTES # (AUTO) 1.1 (0.2-0.8); NEUTROPHILS # (AUTO) 8.5 (2.1-6.9); NEUTROPHILS % 80.8 % (38.7-80.0); PLATELET COUNT 196 x10e3/uL (140-360); RED BLOOD COUNT 4.42 x10e6/uL (4.3-5.7); RED CELL DISTRIBUTION WIDTH 12.3 % (11.7-14.4)
[2019-07-03] MEDS: PIPER-TAZ 3.375 GM 50 ML IV SCH ×4 (06:14→23:41)
[2019-07-03] MEDS: INSULIN LISPRO 100 UNIT/1 ML 3ML VIAL SQ SCH ×4 (08:27→21:56)
[2019-07-03] MEDS: COLLAGENASE OINTMENT 30 GM TUBE TP SCH (08:37)
[2019-07-03] MEDS: MULTIVITAMINS/MINERALS TAB PO SCH (08:37)
[2019-07-03] MEDS: PRIMIDONE 50 MG TAB PO SCH ×2 (08:37→17:34)
[2019-07-03] MEDS: AMLODIPINE BESYLATE 5 MG TAB PO SCH (08:37)
[2019-07-03] MEDS: INSULIN GLARGINE 100 UNITS/ML VIAL SQ SCH (08:38)
[2019-07-03] MEDS ORDERED: COLLAGENASE OINTMENT 30 GM TUBE TP SCH (09:00)
[2019-07-03] MEDS: ENOXAPARIN SOD INJ 40 MG/0.4 ML SYR SC SCH (17:34)
--- NOTE | 2019-07-03 17:47 | NUR ---
Dr Issa didbedside debridment to foot at bedside. culture sent to lab. patient tolerated well.
[2019-07-03] MEDS ORDERED: SODIUM CHLORIDE 0.9% 250ML 250 ML ONE (20:38)
[2019-07-03] MEDS: VANCOMYCIN 1GM/NS 250 ML 250 ML IV SCH (21:45)
[2019-07-03] MEDS: METOPROLOL SUCCINATE 25 MG TAB XL PO SCH (21:45)
[2019-07-03] MEDS: GABAPENTIN 300 MG CAP PO SCH (21:45)
[2019-07-03] MEDS: ATORVASTATIN 40 MG TAB PO SCH (21:45)
[2019-07-04] VITALS (9 sets, daily range): BP systolic 120–144; BP diastolic 71–83
--- NOTE | 2019-07-04 01:24 | Progress Note ---
DATE: 07/03/2019 SUBJECTIVE: The patient is seen at bedside, accompanied by and family members. Denying any history of fever, chills, nausea, vomiting, having some discomfort to the right foot. OBJECTIVE: VITAL SIGNS: Afebrile, pulse rate 83, respirations 20, blood pressure 121/73, O2 saturation at 97%. Ulceration to the 5th metatarsophalangeal joint plantarly is approximately 3 to 3.5 cm in diameter. There is some necrosis, very close to bone down the tendon. Foul smell present with cellulitis up to mid foot to the dorsal aspect. ASSESSMENT: Grade 3 ulcer with possible osteo 5th metatarsal head, left foot. Plan with decreased circulatory status. PLAN: Sharp excisional debridement of the ulcer was performed down to tendon. Devitalized tissue sharply excised via the use of a sterile #10 blade until good viable bleeding tissue was achieved. Deep cultures were taken for aerobic and anaerobic growth. Foul smell present after debridement. The ulcer measured approximately 3 to 3.5 cm diameter after the debridement was performed to the grade 3/4 ulceration right foot. We will continue IV antibiotics. Local wound care with Santyl followed by diluted wet-to-dry Betadine. Continue to monitor. The patient understands no guarantees or warranties can be given. The patient may need further debridement, which may include a possible partial amputation if not responsive. MUSTAPHA Samuel/ESTEE /[id number]
[2019-07-04] MEDS: PIPER-TAZ 3.375 GM 50 ML IV SCH ×4 (05:51→23:07)
[2019-07-04] MEDS: INSULIN LISPRO 100 UNIT/1 ML 3ML VIAL SQ SCH ×4 (07:30→21:23)
[2019-07-04] MEDS: INSULIN GLARGINE 100 UNITS/ML VIAL SQ SCH (07:30)
--- NOTE | 2019-07-04 08:30 | Diagnostic Imaging Report ---
MRI of the right foot without contrast. History: Diabetic foot ulcer. Ulcer under the fifth digit. Technique: Multiplanar multisequence MRI of the foot without contrast Comparison: Radiographs 07/01/2019 Findings: Apparent postsurgical change at the plantar aspect of the first toe with associated skin thickening and mild bone marrow edema in the distal tuft of the first toe. This could be stress related/postsurgical or possibly osteomyelitis in the appropriate clinical context. Skin ulceration with skin thickening and abnormal soft tissue edema at the plantar aspect of the distal fifth metatarsal and proximal fifth toe. There is abnormal bone marrow edema in the distal fifth metatarsal and proximal fifth toe worrisome for osteomyelitis. No well-formed drainable fluid collection/abscess is seen. No acute fracture, dislocation or evidence of avascular necrosis. Scattered degenerative changes are seen. Mild diffuse muscle atrophy. No ligamentous or tendon tear is seen. The visualized neurovascular bundles are intact. Diffuse edema about the foot could be due to cellulitis. Impression: Skin ulceration with skin thickening and abnormal soft tissue edema at the plantar aspect of the distal fifth metatarsal and proximal fifth toe. There is abnormal bone marrow edema in the distal fifth metatarsal and proximal fifth toe worrisome for osteomyelitis. No well-formed drainable fluid collection/abscess is seen. Apparent postsurgical change/prior osteomyelitis at the plantar aspect of the first toe with associated skin thickening and mild bone marrow edema in the distal tuft of the first toe. This could be stress related/postsurgical or possibly osteomyelitis in the appropriate clinical context Preliminary report given by Dr. Tapia at the time of the study: An ulcer is at the base of the 5th digit at the MTP. There is edema of the head of the 5th metatarsal concerning for osteomyelitis. Diffuse edema of the forefoot. Truncated distal phalanx of the first digit, the previous site of osteomyelitis. Signed by: Dr. Dilan Vigil M.D. on 07/04/2019 8:27 AM
[2019-07-04] MEDS: AMLODIPINE BESYLATE 5 MG TAB PO SCH (09:03)
[2019-07-04] MEDS: MULTIVITAMINS/MINERALS TAB PO SCH (09:03)
[2019-07-04] MEDS: PRIMIDONE 50 MG TAB PO SCH ×2 (09:03→17:03)
[2019-07-04] MEDS: COLLAGENASE OINTMENT 30 GM TUBE TP SCH (10:45)
--- NOTE | 2019-07-04 11:31 | NUR ---
Wound care provided at this time, per order. New dressing CDI, pt tolerated well. C/o pain 01/02.
--- NOTE | 2019-07-04 12:09 | NUR ---
EDUCATED ABOUT IMM, SIGNED, FILED IN CHART, WITH COPY LEFT WITH FAMILY AT BEDSIDE.
--- NOTE | 2019-07-04 13:27 | Progress Note ---
DATE: 07/04/2019 SUBJECTIVE: The patient at bedside, doing better. Decreased discomfort to the right lower extremity. Denies any history of fever, chills, nausea, or vomiting. OBJECTIVE: VITAL SIGNS: Afebrile, pulse rate 74, respirations 18, blood pressure 120/70, and O2 saturation 96%. EXTREMITIES: Ulceration to the right lower extremity is looking somewhat better. Some granulation tissue noted. Minimal foul smell. Some tendon exposed, measuring more than 3 to 3.5 cm in diameter. No bone exposed. There is decreased cellulitis to the dorsal aspect right foot. Pedal pulses diminished. ASSESSMENT: Possible osteomyelitis 5th metatarsal head with a grade 3/4 ulceration right foot. PLAN: We will continue local wound care with diluted wet-to-dry Betadine and Santyl collagenase. Continue offloading. We will continue to monitor foot. If not responsive, may need a bone debridement with possible partial amputation. MUSTAPHA Samuel/ESTEE /[id number]
[2019-07-04] MEDS: ENOXAPARIN SOD INJ 40 MG/0.4 ML SYR SC SCH (17:03)
[2019-07-04] MEDS: ATORVASTATIN 40 MG TAB PO SCH (20:24)
[2019-07-04] MEDS: GABAPENTIN 300 MG CAP PO SCH (20:24)
[2019-07-04] MEDS: METOPROLOL SUCCINATE 25 MG TAB XL PO SCH (20:25)
[2019-07-04] MEDS: VANCOMYCIN 1GM/NS 250 ML 250 ML IV SCH (21:22)
[2019-07-04] MEDS ORDERED: SODIUM CHLORIDE 0.9% 250ML 250 ML ONE (22:54)
--- NOTE | 2019-07-05 01:15 | NUR ---
COMPLETED DRESSING CHANGE TO RIGHT FOOT. PATIENT TOLERATED WELL. CONTINUE TO MONITOR CLOSELY
[2019-07-05 03:53] VITALS: BP 149/89
[2019-07-05] MEDS: PIPER-TAZ 3.375 GM 50 ML IV SCH ×3 (05:17→17:00)
--- NOTE | 2019-07-05 07:00 | NUR ---
BEDSIDE SHIFT REPORT RECEIVED FROM THE SUPERVISOR PHOTOSTAT RN. PT DENIES NEEDS AT THIS TIME.
[2019-07-05 08:00] VITALS: BP 141/85
[2019-07-05] MEDS: INSULIN LISPRO 100 UNIT/1 ML 3ML VIAL SQ SCH ×4 (08:00→21:37)
[2019-07-05] MEDS: INSULIN GLARGINE 100 UNITS/ML VIAL SQ SCH (08:00)
[2019-07-05 08:34] VITALS: BP 141/85
[2019-07-05] MEDS: PRIMIDONE 50 MG TAB PO SCH ×2 (09:13→17:00)
[2019-07-05] MEDS: AMLODIPINE BESYLATE 5 MG TAB PO SCH (09:13)
[2019-07-05] MEDS: MULTIVITAMINS/MINERALS TAB PO SCH (09:13)
[2019-07-05] MEDS: COLLAGENASE OINTMENT 30 GM TUBE TP SCH (09:30)
[2019-07-05 12:00] VITALS: BP 162/85
--- NOTE | 2019-07-05 13:25 | Progress Note ---
DATE: 07/05/2019 SUBJECTIVE: The patient at bedside, doing better. Denies any history of fever, chills, nausea, or vomiting. Decreased swelling to the right lower extremity. OBJECTIVE: VITAL SIGNS: Afebrile, pulse rate 73, respirations 20, blood pressure 149/89, and O2 saturation 96%. EXTREMITIES: Pedal pulses diminished to both the DP and PT. There is still some cellulitis to the mid foot aspect of the right foot, but getting better. Still some foul smell to the right foot ulceration, getting a little bit better. Some granulation tissue noted down to capsular structures. ASSESSMENT: Grade 3 ulcer with possible osteo 5th metatarsal right foot with diabetic neuropathy and peripheral arterial disease. PLAN: We will continue Santyl followed by diluted wet-to-dry Betadine. Continue IV antibiotics such as vancomycin and Zosyn. We will continue to let the foot demarcate. The patient may need further debridement. Ulceration is approximately 3.5 cm in diameter. MUSTAPHA Samuel/ESTEE /[id number]
[2019-07-05 16:00] VITALS: BP 161/85
[2019-07-05] MEDS: ENOXAPARIN SOD INJ 40 MG/0.4 ML SYR SC SCH (17:00)
--- NOTE | 2019-07-05 19:00 | NUR ---
BEDSIDE SHIFT REPORT GIVEN TO THE UNIVERSITY TEACHER RN. PT DENIED FURTHER NEEDS.
[2019-07-05 21:18] VITALS: BP 142/91
[2019-07-05] MEDS: ATORVASTATIN 40 MG TAB PO SCH (21:43)
[2019-07-05] MEDS: GABAPENTIN 300 MG CAP PO SCH (21:43)
[2019-07-05] MEDS: VANCOMYCIN 1GM/NS 250 ML 250 ML IV SCH (21:44)
[2019-07-05] MEDS: METOPROLOL SUCCINATE 25 MG TAB XL PO SCH (21:44)
[2019-07-06] VITALS (7 sets, daily range): BP systolic 132–155; BP diastolic 11–83
[2019-07-06] MEDS: PIPER-TAZ 3.375 GM 50 ML IV SCH ×4 (00:28→17:28)
--- NOTE | 2019-07-06 07:00 | NUR ---
BEDSIDE SHIFT REPORT RECEIVED FROM CUSHION FORMER RN. PT DENIES NEEDS AT THIS TIME.
--- NOTE | 2019-07-06 07:02 | NUR ---
BEDSIDE SHIFT REPORT GIVEN TO ONCOMING NURSE.PT RESTING IN BED WITH NO S/S OF DISTRESS.
[2019-07-06] MEDS: INSULIN LISPRO 100 UNIT/1 ML 3ML VIAL SQ SCH ×4 (08:15→21:32)
[2019-07-06] MEDS: INSULIN GLARGINE 100 UNITS/ML VIAL SQ SCH (08:15)
[2019-07-06] MEDS: MULTIVITAMINS/MINERALS TAB PO SCH (09:09)
[2019-07-06] MEDS: PRIMIDONE 50 MG TAB PO SCH ×2 (09:13→17:28)
[2019-07-06] MEDS: AMLODIPINE BESYLATE 5 MG TAB PO SCH (09:13)
[2019-07-06] MEDS: COLLAGENASE OINTMENT 30 GM TUBE TP SCH (09:14)
--- NOTE | 2019-07-06 10:41 | NUR ---
FAXED NOTE GIVEN TO PT TO COURT FOZ[facility] [phone] FOR PT
--- NOTE | 2019-07-06 13:56 | Progress Note ---
DATE: 07/06/2019 SUBJECTIVE: The patient is seen at bedside, doing better. Denies any history of fever, chills, nausea, or vomiting. Still has some foul smell to the right foot. OBJECTIVE: VITAL SIGNS: Afebrile, pulse rate 71, respirations 18, blood pressure 137/80, and O2 saturation 94%. EXTREMITIES: Ulceration to 5th metatarsophalangeal joint approximately 2.5 to 3 cm in diameter. Some necrosis noted with no bone exposed. Close to the capsule with some fibrotic necrotic tissue and foul smell present. There is still positive cellulitis to the dorsal aspect right foot resolving slowly. Pedal pulses diminished to both the DP and PT. LABORATORY DATA: Lab show a white blood cell count of 10.5. ASSESSMENT: Grade 3/4 ulceration right foot, possible osteo with cellulitis and diabetic neuropathy and peripheral arterial disease. PLAN: We will continue IV antibiotics. Continue local wound care with Santyl, followed by diluted wet-to-dry. Ulceration may need to be debrided once again. Continue offloading. We will continue to follow. MUSTAPHA Samuel/ESTEE /[id number]
[2019-07-06] MEDS ORDERED: XARELTO 2.5 MG PO SCH (17:00)
[2019-07-06] MEDS: RIVAROXABAN 10 MG TABLET PO SCH (17:28)
--- NOTE | 2019-07-06 19:00 | NUR ---
BEDSIDE SHIFT REPORT GIVEN TO THE STEREOPTIC PROJECTION TOPOGRAPHER RN. PT DENIED FURTHER NEEDS.
[2019-07-06] MEDS: METOPROLOL SUCCINATE 25 MG TAB XL PO SCH (21:31)
[2019-07-06] MEDS: GABAPENTIN 300 MG CAP PO SCH (21:31)
[2019-07-06] MEDS: ATORVASTATIN 40 MG TAB PO SCH (21:31)
[2019-07-06] MEDS: VANCOMYCIN 1GM/NS 250 ML 250 ML IV SCH (21:35)
[2019-07-07] VITALS (10 sets, daily range): BP systolic 107–147; BP diastolic 63–82
[2019-07-07] MEDS: PIPER-TAZ 3.375 GM 50 ML IV SCH ×4 (00:28→18:16)
[2019-07-07 06:19] LABS: BASOPHILS % 0.6 % (0.0-1.0); EOSINOPHILS # (AUTO) 0.3 (0.0-0.4); EOSINOPHILS % 4.6 % (0.0-6.0); HEMATOCRIT 39.2 % (38.2-49.6); LYMPHOCYTES # (AUTO) 1.1 (1.0-3.2); LYMPHOCYTES % 16.3 % (18.0-39.1); MEAN CORPUSCULAR HEMOGLOBIN 29.6 pg (28-32); MEAN CORPUSCULAR HGB CONC 33.2 g/dL (31-35); MEAN CORPUSCULAR VOLUME 89.3 fL (81-99); MONOCYTES # (AUTO) 0.8 (0.2-0.8); MONOCYTES % 11.2 % (4.4-11.3); NEUTROPHILS # (AUTO) 4.5 (2.1-6.9); PLATELET COUNT 221 x10e3/uL (140-360); RED BLOOD COUNT 4.39 x10e6/uL (4.3-5.7); RED CELL DISTRIBUTION WIDTH 12.1 % (11.7-14.4)
[2019-07-07 06:51] LABS: ANION GAP 10.1 mmol/L (8-16); BLOOD UREA NITROGEN 16 mg/dL (7-26); BUN/CREATININE RATIO 15 (6-25); CALCIUM 9.3 mg/dL (8.4-10.2); CARBON DIOXIDE 30 mmol/L (22-29); CHLORIDE 101 mmol/L (98-107); CREATININE, SERUM 1.06 mg/dL (0.72-1.25); EST GLOMERULAR FILTRATION RATE > 60 ML/MIN (60-); GLUCOSE 199 mg/dL (74-118); POTASSIUM 4.1 mmol/L (3.5-5.1); SODIUM 137 mmol/L (136-145)
--- NOTE | 2019-07-07 07:00 | NUR ---
BEDSIDE SHIFT REPORT RECEIVED FROM THE AIRPORT CLERK RN. PT DENIES NEEDS AT THIS TIME.
--- NOTE | 2019-07-07 07:09 | NUR ---
BEDSIDE SHIFT REPORT GIVEN TO ONCOMING NURSE.PT RESTING IN BED WITH NO S/S OF DISTRESS.
--- NOTE | 2019-07-07 07:15 | NUR ---
DR. SRIVASTAVA AT BEDSIDE. WILL DO THE I&D TOMORROW.
--- NOTE | 2019-07-07 08:00 | NUR ---
WOUND DRESSING COMPLETED FOR THE RIGHT FOOT. PT DENIED TO WEAR YELLOW SOCKS. EDUCATED PT ABOUT FALL PRECAUTIONS. BED ALARM IS ON. CALL LIGHT WITH IN EASY REACH. INSTRUCTED PT TO CALL FOR ANY NEEDS. PT VERBALIZED UNDERSTANDING.
[2019-07-07] MEDS: AMLODIPINE BESYLATE 5 MG TAB PO SCH (08:05)
[2019-07-07] MEDS: MULTIVITAMINS/MINERALS TAB PO SCH (08:05)
[2019-07-07] MEDS: RIVAROXABAN 10 MG TABLET PO SCH ×2 (08:05→18:16)
[2019-07-07] MEDS: PRIMIDONE 50 MG TAB PO SCH ×2 (08:05→18:16)
[2019-07-07] MEDS: COLLAGENASE OINTMENT 30 GM TUBE TP SCH (08:06)
[2019-07-07] MEDS: INSULIN LISPRO 100 UNIT/1 ML 3ML VIAL SQ SCH ×4 (08:15→21:00)
[2019-07-07] MEDS: INSULIN GLARGINE 100 UNITS/ML VIAL SQ SCH (08:15)
--- NOTE | 2019-07-07 13:31 | Progress Note ---
DATE: 07/07/2019 SUBJECTIVE: The patient is seen at bedside, doing somewhat better. Decreased cellulitis of the right lower extremity. Denies any history of fever, chills, nausea, or vomiting. OBJECTIVE: VITAL SIGNS: Afebrile, pulse rate 66, respirations 18, blood pressure 137/80, and O2 saturation 97%. EXTREMITIES: Ulceration to the sub 5th metatarsophalangeal joint still shows some foul smell. Some granulation tissue noted with fibrosis. No bone exposed, very close to the joint capsule. Cellulitis of the dorsal aspect of the right lower extremity also seems to be resolving. ASSESSMENT: Grade 3 ulceration, cellulitis with diabetic neuropathy. PLAN: We will continue IV antibiotics. Continue local wound care. Ulceration will be debrided tomorrow at bedside. MUSTAPHA Samuel/ESTEE /[id number]
--- NOTE | 2019-07-07 16:00 | NUR ---
PATIENT SLID FROM THE CHAIR WHILE ATTEMPTING TO PICK CELL PHONE FROM THE TABLE. THIS NURSE SAW WHILE ENTERING IN TO THE ROOM. RN ASSESSED PT AND NO BRUISE OR SKIN BREAKDOWN NOTED ANYWHERE ON THE BODY. PT DENIES NEEDS AT THIS TIME.
--- NOTE | 2019-07-07 16:30 | NUR ---
PT C/O PAIN ON LEFT BUTTOCK. PAGED AND INFORMED PT SLID FROM THE CHAIR.
--- NOTE | 2019-07-07 16:34 | NUR ---
Nutrition Follow-up Note RD Recommendation for Physician: Continue diet as ordered Plan of Care: RD following, monitoring for tolerance and adequacy Nutrition reason for involvement: Follow up Primary Diagnose(s): diabetes foot ulcer PMH: Hypothyroid, T2DM, HTN Ht:69 in Wt:184.5lb BMI:27.2 kg/m2 IBW:lb +/-10% RD Assessment: (07/07) Visited pt in the room. Pt reported good appetite with 100% lunch intake. No GI complains noted. Current diet is appropriate and adequate. No other concern at this time. (07/02/2019) Chart reviewed. Labs and meds reviewed. Initial encounter with patient. Pt Denies any known food allergies, Nausea, Vomiting, or Diarrhea. Pt denies any difficulty chewing or swallowing. 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 Current Diet: 1800 ADA Malnutrition Evaluation (07/02/2019) The patient does not meet criteria for a specified degree of malnutrition at this time. Will re-evaluate at follow-up as appropriate. Diet Education Needs Assessment: Diet education not desired Nutrition Care Level: Low Signed: Nevaeh Viveros, MS, RD, LD
--- NOTE | 2019-07-07 17:10 | NUR ---
DR. PIERCE AT BEDSIDE. ASSESSED PT. NEW ORDER FOR XRAY. PT DENIED FURTHER NEEDS. PT PRESENT AT THE BEDSIDE
--- NOTE | 2019-07-07 18:33 | NUR ---
PT WANTS TO ADD HER HOME MED LEVOTHYROXINE. PAGED DR. PIERCE AND LEFT MESSAGE REGARDING THE SAME.
[2019-07-07] MEDS ORDERED: LEVOTHYROXINE50 MCG PO (18:35)
--- NOTE | 2019-07-07 19:00 | NUR ---
BEDSIDE SHIFT REPORT GIVEN TO THE OPERATIONS SCHEDULER RN. PT DENIED FURTHER NEEDS.
--- NOTE | 2019-07-07 20:19 | Diagnostic Imaging Report ---
SACRUM/COCCYX X-RAY - 5 VIEWS HISTORY: ^FALL / XRAY ^[id number] ^1949 COMPARISON: None available. FINDINGS: Bones: No acute displaced fracture. Osseous alignment is within normal limits. Joints: Mild degenerative changes of the lower lumbar spine and sacroiliac joints. Soft tissues: The soft tissues appear unremarkable. IMPRESSION: No acute radiographic abnormality. Signed by: Dr. Beatrice Maldonado M.D. on 07/07/2019 8:16 PM
[2019-07-07] MEDS: GABAPENTIN 300 MG CAP PO SCH (21:56)
[2019-07-07] MEDS: METOPROLOL SUCCINATE 25 MG TAB XL PO SCH (21:56)
[2019-07-07] MEDS: VANCOMYCIN 1GM/NS 250 ML 250 ML IV SCH (21:56)
[2019-07-07] MEDS: ATORVASTATIN 40 MG TAB PO SCH (21:56)
[2019-07-08] VITALS (8 sets, daily range): BP systolic 102–142; BP diastolic 63–80
[2019-07-08] MEDS: PIPER-TAZ 3.375 GM 50 ML IV SCH ×4 (00:30→16:43)
[2019-07-08] MEDS ORDERED: LIDOCAINE HCL 2% LOCAL 20 ML VIAL INJ ONE ×2 (07:30→09:00)
[2019-07-08] MEDS: INSULIN LISPRO 100 UNIT/1 ML 3ML VIAL SQ SCH ×4 (07:30→22:04)
[2019-07-08] MEDS: INSULIN GLARGINE 100 UNITS/ML VIAL SQ SCH (07:30)
[2019-07-08] MEDS: AMLODIPINE BESYLATE 5 MG TAB PO SCH (08:51)
[2019-07-08] MEDS: RIVAROXABAN 10 MG TABLET PO SCH ×2 (08:51→16:43)
[2019-07-08] MEDS: PRIMIDONE 50 MG TAB PO SCH ×2 (08:51→16:43)
[2019-07-08] MEDS: MULTIVITAMINS/MINERALS TAB PO SCH (08:51)
[2019-07-08] MEDS: COLLAGENASE OINTMENT 30 GM TUBE TP SCH (09:00)
--- NOTE | 2019-07-08 09:00 | NUR ---
at bedside doing debridement. No s/s of acute distress noted.
[2019-07-08] MEDS ORDERED: SODIUM CHLORIDE 0.9% 250ML 250 ML ONE (12:00)
--- NOTE | 2019-07-08 14:53 | Progress Note ---
DATE: 07/08/2019 SUBJECTIVE: The patient at bedside, doing somewhat better. Still has some redness and swelling to the right lower extremity, but denying any history of fever, chills, nausea, or vomiting. OBJECTIVE: VITAL SIGNS: Afebrile, pulse rate 69, respirations 22, blood pressure 121/75, O2 saturation 98%. EXTREMITIES: Pedal pulses diminished to both the DP and PT. Positive cellulitis to the dorsal aspect right foot, getting significantly better. Has a grade 3 ulceration down to the joint capsule with no bone exposed to the right 5th metatarsophalangeal joint, some fibrosis and foul smell, but getting better, measuring 2 to 2.5 cm in diameter. ASSESSMENT: Grade 3 ulceration with necrosis noted down the joint capsule with cellulitis, diabetic neuropathy, and peripheral arterial disease. PLAN: After discussing different options and under no anesthesia secondary to his peripheral neuropathy, sharp excisional debridement of the ulcer was performed down to capsule and tendinous structures. Devitalized tissue sharply excised until good viable bleeding tissue was achieved. Sterile dressing was applied with Santyl followed by diluted wet-to-dry Betadine. We will continue IV antibiotics, local wound care. The patient is responding slowly to IV antibiotics and local wound care. Instructed if not responsive, may need a partial amputation of foot. We will continue IV Zosyn and vancomycin, wound care and offloading. MUSTAPHA Samuel/ESTEE /[id number]
[2019-07-08] MEDS: METFORMIN HCL 500 MG TAB PO SCH (16:43)
[2019-07-08] MEDS ORDERED: NON-FORMULARY MEDICATION (Metformin Hcl 1,000 MG) PO SCH (17:00)
--- NOTE | 2019-07-08 19:15 | NUR ---
Report given to oncoming nurse of patient's status. Resting in bed. No s/s of acute distress noted. Side rails upx2, call light within reach.
[2019-07-08] MEDS: ATORVASTATIN 40 MG TAB PO SCH (22:02)
[2019-07-08] MEDS: GABAPENTIN 300 MG CAP PO SCH (22:02)
[2019-07-08] MEDS: VANCOMYCIN 1GM/NS 250 ML 250 ML IV SCH (22:04)
[2019-07-08] MEDS: METOPROLOL SUCCINATE 25 MG TAB XL PO SCH (22:04)
[2019-07-09] VITALS (8 sets, daily range): BP systolic 98–157; BP diastolic 53–76
[2019-07-09] MEDS: PIPER-TAZ 3.375 GM 50 ML IV SCH ×5 (00:10→23:32)
[2019-07-09] MEDS: LEVOTHYROXINE SODIUM 50 MCG TAB PO SCH (05:26)
[2019-07-09] MEDS: INSULIN LISPRO 100 UNIT/1 ML 3ML VIAL SQ SCH ×4 (08:30→21:15)
[2019-07-09] MEDS: INSULIN GLARGINE 100 UNITS/ML VIAL SQ SCH (08:30)
[2019-07-09] MEDS: METFORMIN HCL 500 MG TAB PO SCH ×2 (08:45→17:30)
[2019-07-09] MEDS: AMLODIPINE BESYLATE 5 MG TAB PO SCH (08:45)
[2019-07-09] MEDS: MULTIVITAMINS/MINERALS TAB PO SCH (08:45)
[2019-07-09] MEDS: PRIMIDONE 50 MG TAB PO SCH ×2 (08:45→17:30)
[2019-07-09] MEDS: RIVAROXABAN 10 MG TABLET PO SCH ×2 (08:45→17:30)
[2019-07-09] MEDS: COLLAGENASE OINTMENT 30 GM TUBE TP SCH (09:00)
[2019-07-09] MEDS: ATORVASTATIN 40 MG TAB PO SCH (21:17)
[2019-07-09] MEDS: METOPROLOL SUCCINATE 25 MG TAB XL PO SCH (21:17)
[2019-07-09] MEDS: VANCOMYCIN 1GM/NS 250 ML 250 ML IV SCH (21:17)
[2019-07-09] MEDS: GABAPENTIN 300 MG CAP PO SCH (21:17)
--- NOTE | 2019-07-09 21:31 | Progress Note ---
DATE: 07/09/2019 SUBJECTIVE: The patient is seen at bedside, doing significantly better. Decreased pain to the right lower extremity. Denies any history of fever, chills, nausea, or vomiting. OBJECTIVE: VITAL SIGNS: Afebrile, pulse rate 71, respirations 18, blood pressure 151/74, and O2 saturation 97%. EXTREMITIES: Has an ulceration to sub 5th metatarsophalangeal joint, getting better. Decreased foul smell. Granulation tissue noted down to the capsule. No bone exposed. Measuring 2.5 to 3 cm in diameter. Pedal pulses diminished. LABORATORY DATA: Labs noted, has a white blood cell count of 6.7. ASSESSMENT: Peripheral arterial disease, diabetic neuropathy with grade 3 ulcer, possible osteo. PLAN: We will continue local wound care. Continue IV antibiotics. Continue offloading. We will continue to follow. The patient continues to improve. The patient may be going home possibly Thursday or Thursday. MUSTAPHA Samuel/ESTEE /[id number]
[2019-07-10] VITALS (7 sets, daily range): BP systolic 132–154; BP diastolic 67–85
[2019-07-10] MEDS: LEVOTHYROXINE SODIUM 50 MCG TAB PO SCH (05:38)
[2019-07-10] MEDS: PIPER-TAZ 3.375 GM 50 ML IV SCH ×4 (05:38→23:39)
[2019-07-10] MEDS: INSULIN LISPRO 100 UNIT/1 ML 3ML VIAL SQ SCH ×4 (08:00→21:40)
[2019-07-10] MEDS: INSULIN GLARGINE 100 UNITS/ML VIAL SQ SCH (08:00)
[2019-07-10] MEDS: METFORMIN HCL 500 MG TAB PO SCH ×2 (09:30→17:00)
[2019-07-10] MEDS: MULTIVITAMINS/MINERALS TAB PO SCH (09:30)
[2019-07-10] MEDS: RIVAROXABAN 10 MG TABLET PO SCH ×2 (09:30→17:00)
[2019-07-10] MEDS: AMLODIPINE BESYLATE 5 MG TAB PO SCH (09:30)
[2019-07-10] MEDS: PRIMIDONE 50 MG TAB PO SCH ×2 (09:30→17:00)
--- NOTE | 2019-07-10 16:15 | NUR ---
Visit made by the Spiritual Care Department Pastoral Visitor, Hermilo Henson. Pt in shower/unavailable at this time. PV left card describing spiritual care services available in hospital. KEVIN LUJAN [employer] Spiritual Care Department O: [phone] Pager: [phone] ([phone] number calling from)
[2019-07-10] MEDS: COLLAGENASE OINTMENT 30 GM TUBE TP SCH (17:30)
--- NOTE | 2019-07-10 19:54 | Consultation ---
DATE OF CONSULTATION: 07/10/2019 SUBJECTIVE: The patient is at bedside, doing better. Denies any history of fever, chills, nausea, or vomiting. OBJECTIVE: VITAL SIGNS: Afebrile, pulse rate 70, respirations 21, blood pressure 154/73, and O2 saturation 97%. EXTREMITIES: Ulceration to the sub 5th metatarsophalangeal joints less than 2.5 cm in diameter. Some necrosis noted down in the subcutaneous tissue. No bone exposed. Some fibrotic tissue noted with minimal foul smell. Decreased cellulitis to the dorsal aspect of right foot with pedal pulses diminished. LABORATORY DATA: White blood cell count of 6.7. ASSESSMENT: Peripheral arterial disease, grade 3 ulcer healing with possible osteomyelitis . PLAN: We will continue IV antibiotics such as Zosyn and vancomycin. We will continue local wound care with Santyl followed by diluted wet-to-dry Betadine. Continue offloading. Continue followup. The patient may be going home, possibly on Thursday. If he continues to improve, we will do a bedside debridement tomorrow. MUSTAPHA Samuel/ESTEE /[id number]
[2019-07-10] MEDS: ATORVASTATIN 40 MG TAB PO SCH (21:56)
[2019-07-10] MEDS: GABAPENTIN 300 MG CAP PO SCH (21:56)
[2019-07-10] MEDS: VANCOMYCIN 1GM/NS 250 ML 250 ML IV SCH (21:56)
[2019-07-10] MEDS: METOPROLOL SUCCINATE 25 MG TAB XL PO SCH (21:56)
[2019-07-11] VITALS (8 sets, daily range): BP systolic 125–152; BP diastolic 59–86
[2019-07-11 05:35] LABS: BASOPHILS % 0.5 % (0.0-1.0); EOSINOPHILS # (AUTO) 0.3 (0.0-0.4); EOSINOPHILS % 4.1 % (0.0-6.0); HEMOGLOBIN 13.2 g/dL (14.0-18.0); LYMPHOCYTES # (AUTO) 1.2 (1.0-3.2); LYMPHOCYTES % 15.3 % (18.0-39.1); MEAN CORPUSCULAR HEMOGLOBIN 29.7 pg (28-32); MEAN CORPUSCULAR VOLUME 90.1 fL (81-99); MONOCYTES # (AUTO) 0.9 (0.2-0.8); NEUTROPHILS # (AUTO) 5.2 (2.1-6.9); NEUTROPHILS % 67.6 % (38.7-80.0); PLATELET COUNT 210 x10e3/uL (140-360); RED BLOOD COUNT 4.44 x10e6/uL (4.3-5.7); RED CELL DISTRIBUTION WIDTH 12.3 % (11.7-14.4)
[2019-07-11] MEDS: LEVOTHYROXINE SODIUM 50 MCG TAB PO SCH (05:42)
[2019-07-11] MEDS: PIPER-TAZ 3.375 GM 50 ML IV SCH ×4 (05:42→23:50)
[2019-07-11 05:50] LABS: ANION GAP 10.1 mmol/L (8-16); BLOOD UREA NITROGEN 20 mg/dL (7-26); BUN/CREATININE RATIO 19 (6-25); CALCIUM 9.5 mg/dL (8.4-10.2); CARBON DIOXIDE 29 mmol/L (22-29); CHLORIDE 102 mmol/L (98-107); CREATININE, SERUM 1.08 mg/dL (0.72-1.25); EST GLOMERULAR FILTRATION RATE > 60 ML/MIN (60-); GLUCOSE 149 mg/dL (74-118); POTASSIUM 4.1 mmol/L (3.5-5.1); SODIUM 137 mmol/L (136-145)
[2019-07-11] MEDS: INSULIN GLARGINE 100 UNITS/ML VIAL SQ SCH (07:30)
[2019-07-11] MEDS: RIVAROXABAN 10 MG TABLET PO SCH ×2 (09:59→18:17)
[2019-07-11] MEDS: PRIMIDONE 50 MG TAB PO SCH ×2 (09:59→18:17)
[2019-07-11] MEDS: METFORMIN HCL 500 MG TAB PO SCH ×2 (09:59→18:17)
[2019-07-11] MEDS: AMLODIPINE BESYLATE 5 MG TAB PO SCH (09:59)
[2019-07-11] MEDS: MULTIVITAMINS/MINERALS TAB PO SCH (09:59)
[2019-07-11] MEDS: COLLAGENASE OINTMENT 30 GM TUBE TP SCH (10:01)
[2019-07-11] MEDS: INSULIN LISPRO 100 UNIT/1 ML 3ML VIAL SQ SCH ×4 (11:21→21:45)
--- NOTE | 2019-07-11 13:14 | Progress Note ---
DATE: 07/11/2019 SUBJECTIVE: The patient is seen at bedside, doing better. Denies any history of fever, chills, nausea, or vomiting. Decreased swelling and redness to his right foot. OBJECTIVE: VITAL SIGNS: Afebrile, pulse rate 70, respirations 20, blood pressure 136/77, and O2 saturation 97%. EXTREMITIES: Pedal pulses diminished to both the DP and PT. Skin temperature warm to touch on his feet. CFT to less than 5 seconds. Has a grade 2 ulcer now down the subcutaneous tissue, measuring 2.5 cm in diameter, sub 5th metatarsophalangeal joint. No bone or tendon exposed. Some fibrotic tissue noted down the subcutaneous tissue. LABORATORY DATA: Labs noted, has a white blood cell count of 7.7, hemoglobin 13.2 with a platelet count of 210. ASSESSMENT: Grade 2 ulcer, diabetic neuropathy, peripheral arterial disease with cellulitis and possible osteo. PLAN: After discussing different options under no anesthesia secondary to his peripheral neuropathy, sharp excisional debridement of the ulcer was carried down to subcutaneous tissue. Devitalized tissue sharply excised until good viable bleeding tissue was achieved. Devitalized tissue sharply excised via the use of a sterile 10 blade. Sterile dressing was applied followed by Santyl with Santyl applied and is followed by diluted wet-to-dry Betadine. We will continue IV antibiotics such as vancomycin and Zosyn. Continue local wound care. Possible discharge date will be Thursday. The patient continues to respond. Following the ulcer debridement, the ulcer measured approximately 2 to 2.5 cm in diameter. MUSTAPHA Samuel/ESTEE /[id number]
[2019-07-11] MEDS: METOPROLOL SUCCINATE 25 MG TAB XL PO SCH (21:38)
[2019-07-11] MEDS: ATORVASTATIN 40 MG TAB PO SCH (21:38)
[2019-07-11] MEDS: GABAPENTIN 300 MG CAP PO SCH (21:38)
[2019-07-11] MEDS: VANCOMYCIN 1GM/NS 250 ML 250 ML IV SCH (22:02)
[2019-07-12] VITALS (8 sets, daily range): BP systolic 114–177; BP diastolic 72–84
[2019-07-12] MEDS ORDERED: SODIUM CHLORIDE 0.9% 250ML 250 ML ONE (05:34)
[2019-07-12] MEDS: PIPER-TAZ 3.375 GM 50 ML IV SCH ×4 (05:52→23:52)
[2019-07-12] MEDS: LEVOTHYROXINE SODIUM 50 MCG TAB PO SCH (05:53)
[2019-07-12] MEDS: INSULIN LISPRO 100 UNIT/1 ML 3ML VIAL SQ SCH ×4 (07:30→21:52)
[2019-07-12] MEDS: INSULIN GLARGINE 100 UNITS/ML VIAL SQ SCH (07:30)
[2019-07-12] MEDS: RIVAROXABAN 10 MG TABLET PO SCH ×2 (09:17→17:40)
[2019-07-12] MEDS: METFORMIN HCL 500 MG TAB PO SCH ×2 (09:17→17:40)
[2019-07-12] MEDS: AMLODIPINE BESYLATE 5 MG TAB PO SCH (09:17)
[2019-07-12] MEDS: MULTIVITAMINS/MINERALS TAB PO SCH (09:17)
[2019-07-12] MEDS: COLLAGENASE OINTMENT 30 GM TUBE TP SCH (09:17)
[2019-07-12] MEDS: PRIMIDONE 50 MG TAB PO SCH ×2 (09:17→17:40)
--- NOTE | 2019-07-12 15:41 | Consultation ---
DATE OF CONSULTATION: 07/12/2019 SUBJECTIVE: The patient is at bedside, doing better, decreased pain, decreased swelling. Denies any history of fever, chills, nausea, or vomiting. OBJECTIVE: VITAL SIGNS: Afebrile, pulse rate 70, respirations 20, blood pressure 123/73, and O2 saturation 95%. EXTREMITIES: Ulceration sub fifth metatarsopharyngeal joint has started to become nice and granular with negative foul smell, decreased cellulitis, measuring 2 to 2.5 cm diameter. Pedal pulses are diminished. LABORATORY DATA: Looking better. White blood cell count 7.73. ASSESSMENT: Peripheral arterial disease, diabetic neuropathy with a grade 2 ulcer healing. PLAN: Continue local wound care. Continue IV antibiotics. The patient may be discharged possibly tomorrow. MUSTAPHA Samuel/ESTEE /[id number]
--- NOTE | 2019-07-12 19:25 | NUR ---
Bedside report and walking rounds complete. Pt A&O, resting in bed and in no apparent distress. All safety measures ensured and pt call tucker near. Pt is legally blind. Pt advised to call for assistance.
[2019-07-12] MEDS: ATORVASTATIN 40 MG TAB PO SCH (21:52)
[2019-07-12] MEDS: METOPROLOL SUCCINATE 25 MG TAB XL PO SCH (21:52)
--- NOTE | 2019-07-12 22:30 | NUR ---
Pt received shower
--- NOTE | 2019-07-12 23:00 | NUR ---
Wound dressing changed completed, ointment applied, and wet to dry dressing. Pt tolerated well.
[2019-07-13] MEDS: VANCOMYCIN 1GM/NS 250 ML 250 ML IV SCH (01:18)
--- NOTE | 2019-07-13 01:27 | NUR ---
Vanc trough drawn per protocol since no lab since 07/06. Result <2.0. Vanc given.
[2019-07-13 01:43] VITALS: BP 140/70
[2019-07-13] MEDS: PIPER-TAZ 3.375 GM 50 ML IV SCH (05:57)
[2019-07-13] MEDS: LEVOTHYROXINE SODIUM 50 MCG TAB PO SCH (05:57)
[2019-07-13 06:45] VITALS: BP 146/85
--- NOTE | 2019-07-13 07:08 | NUR ---
Bedside report/Walking rounds complete with day shift RN.
[2019-07-13 07:46] VITALS: BP 146/76
[2019-07-13] MEDS: MULTIVITAMINS/MINERALS TAB PO SCH (08:41)
[2019-07-13] MEDS: PRIMIDONE 50 MG TAB PO SCH (08:41)
[2019-07-13] MEDS: RIVAROXABAN 10 MG TABLET PO SCH (08:41)
[2019-07-13] MEDS: AMLODIPINE BESYLATE 5 MG TAB PO SCH (08:41)
[2019-07-13] MEDS: COLLAGENASE OINTMENT 30 GM TUBE TP SCH (08:41)
[2019-07-13] MEDS: METFORMIN HCL 500 MG TAB PO SCH (08:41)
[2019-07-13] MEDS ORDERED: TYLENOL # 31 EA PO (09:31)
[2019-07-13] MEDS ORDERED: DOXYCYCLINE HY100 MG PO (09:32)
[2019-07-13] MEDS ORDERED: CIPRO500 MG PO (09:32)
--- NOTE | 2019-07-13 10:30 | NUR ---
Spoke to Dr. Munroe regarding discharge. He gave home health order for wound care. CM spoke to pt at bedside. States he thinks he had home health previously, but does not remember name. States can use any company that takes his insurance. Choice letter signed for [facility] Staff and [facility] and placed in front of chart. Copy to pt with home health companies' contact information. CM informed pt that home health does not typically come out daily for wound care. Pt states that he can learn how to do the wound himself and that his can help him at home. ASHLEY Simms to change dressing and teach pt prior to DC. IMM letter delivered and explained to pt. He verbalized understanding. Signed copy placed in chart. Copy to pt. Home health referral faxed to [facility] Staff
--- NOTE | 2019-07-13 11:02 | NUR ---
Wound care dressing reapplied at this time, changed CDI. Per MD order.
--- NOTE | 2019-07-13 13:05 | Progress Note ---
DATE: 07/13/2019 SUBJECTIVE: The patient is seen at bedside, doing significantly better. Denies any history of fever, chills, nausea, or vomiting. OBJECTIVE: VITAL SIGNS: Afebrile, pulse rate 70, respirations 18, blood pressure 146/76, and O2 saturation 97%. EXTREMITIES: Ulceration to the plantar aspect of the 5th metatarsophalangeal joint, 2 to 2.5 cm in diameter. No bone exposed, very close to the capsule and tendon with some fibrotic and granulation tissue noted. Decreased cellulitis to the dorsal aspect of right foot with pedal pulses diminished. ASSESSMENT: Peripheral arterial disease, diabetic neuropathy with a grade 3 ulcer. PLAN: Okay to be discharged on this date. Prescription for doxycycline was given. The patient to continue local wound care at home. He is to follow up this week in the office. MUSTAPHA Samuel/ESTEE /[id number]
--- NOTE | 2019-07-13 15:44 | NUR ---
Received call from Letty melgar [facility] Staff. States they are able to accept pt. She will call pt and put pt on schedule for admit tomorrow.
== END 2019-07-13 11:10 | disposition home health service (06) | DRG 264 ==
LOC: ER 20:20 → ERHOLD 21:54 → MED/SURG2 23:50
PROVIDERS: ADMIT Internal Medicine; ATTEND Internal Medicine
PROC: 0JBQ0ZZ Excision of Right Foot Subcutaneous Tissue and Fascia, Open Approach (ICD-10-PCS; principal; 2019-07-03)
PROC: 0JBQ0ZZ Excision of Right Foot Subcutaneous Tissue and Fascia, Open Approach (ICD-10-PCS; 2019-07-08)
PROC: 0JBQ0ZZ Excision of Right Foot Subcutaneous Tissue and Fascia, Open Approach (ICD-10-PCS; 2019-07-11)
DX: E11.52 Type 2 diabetes mellitus with diabetic peripheral angiopathy with gangrene (principal); L03.115 Cellulitis of right lower limb; M86.9 Osteomyelitis, unspecified; L97.518 Non-pressure chronic ulcer of other part of right foot with other specified severity; M86.8X7 Other osteomyelitis, ankle and foot; I96 Gangrene, not elsewhere classified; E11.621 Type 2 diabetes mellitus with foot ulcer; L97.519 Non-pressure chronic ulcer of other part of right foot with unspecified severity; M79.671 Pain in right foot; E11.40 Type 2 diabetes mellitus with diabetic neuropathy, unspecified; Z79.4 Long term (current) use of insulin; E11.69 Type 2 diabetes mellitus with other specified complication; L03.031 Cellulitis of right toe
CPT/HCPCS: 36415; 72220; 80048; 80053; 80202; 81001; 82948; 83605; 85025; 85651; 87040; 87086; 99284; J1650; J1815; J2001; J2543; J3370; J7050

== ENCOUNTER 2022-03-04 17:48 | Inpatient (IN) | payer MEDICARE ==
[~2022-03-04] VITALS: Ht 175.3 cm; Wt 82.6 kg
[~2022-03-04 17:48] MED LIST changes: +AMLODIPINE BESYL5 MG PO; +ASPIRIN EC81 MG PO; +ATORVASTATIN CA40 MG PO; +DAILY VITE1 EACH PO; +GABAPENTIN300 MG PO; +JARDIANCE PO; +LOSARTAN POTASS50 MG PO; +METFORMIN HCL1000 MG PO; +METOPROLOL SUCC25 MG PO; +MYSOLINE50 MG PO; +NOVOLIN; +SERTRALINE HCL50 MG PO; +TYLENOL # 31 EA PO; +ULTRAM50 MG PO; +XARELTO PO
[2022-03-04] MEDS ORDERED: ACETAMINOPHEN 325 MG TAB PO PRN (18:15)
[2022-03-04] MEDS ORDERED: SODIUM CHLORIDE FLUSH 10 ML SYR INJ PRN (18:15)
[2022-03-04 18:18] LABS: BASOPHILS % 0.4 % (0.0-1.0); EOSINOPHILS # (AUTO) 0.2 (0.0-0.4); EOSINOPHILS % 1.6 % (0.0-6.0); HEMATOCRIT 39.4 % (38.2-49.6); HEMOGLOBIN 12.7 g/dL (14.0-18.0); LYMPHOCYTES # (AUTO) 1.4 (1.0-3.2); LYMPHOCYTES % 12.3 % (18.0-39.1); MEAN CORPUSCULAR HEMOGLOBIN 29.7 pg (28-32); MEAN CORPUSCULAR HGB CONC 32.2 g/dL (31-35); MEAN CORPUSCULAR VOLUME 92.1 fL (81-99); MONOCYTES # (AUTO) 1.2 (0.2-0.8); MONOCYTES % 10.9 % (4.4-11.3); NEUTROPHILS # (AUTO) 8.3 (2.1-6.9); NEUTROPHILS % 74.6 % (38.7-80.0); PLATELET COUNT 178 x10e3/uL (140-360); RED BLOOD COUNT 4.28 x10e6/uL (4.3-5.7); RED CELL DISTRIBUTION WIDTH 13.5 % (11.7-14.4)
[2022-03-04] MEDS: Vancomycin IV 1 GM in SODIUM CHLORIDE 0.9% 250ML 250 ML IV SCH ×2 (18:28→18:34)
[2022-03-04] MEDS: ONDANSETRON HCL INJ 2MG/ML 2ML 2 MG/ML VIAL IV PRN (18:36)
[2022-03-04] MEDS: Morphine 4mg Syringe 4 MG/ML INJ IV PRN (18:36)
[2022-03-04 18:42] LABS: ALBUMIN 3.8 g/dL (3.5-5.0); ANION GAP 14.4 mmol/L (8-16); CALCIUM 9.5 mg/dL (8.4-10.2); CREATININE, SERUM 1.26 mg/dL (0.72-1.25); POTASSIUM 4.4 mmol/L (3.5-5.1)
[2022-03-04] MEDS ORDERED: DEXTROSE 50% SYRINGE 50 ML IV STA (18:44)
[2022-03-04] MEDS ORDERED: ACETAMINOPHEN 325 MG TAB PO ONE (18:45)
[2022-03-04] MEDS ORDERED: SODIUM CHLORIDE 0.9% 1000ML 1,000 ML IV ONE ×2 (18:45→20:15)
[2022-03-04] MEDS ORDERED: ACETAMINOPHEN 325 MG TAB ONE (18:46)
[2022-03-04] MEDS ORDERED: DEXTROSE 50% SYRINGE 50 ML IV PRN (19:00)
[2022-03-04] MEDS ORDERED: SODIUM CHLORIDE 0.9% 1000ML 1,000 ML ONE (20:19)
[2022-03-04] MEDS: INSULIN REGULAR, HUMAN 100 UNIT/1 ML SQ SCH (21:00)
[2022-03-04 22:00] VITALS: BP 113/58
[2022-03-05] VITALS: BP 106/58
[2022-03-05 04:00] VITALS: BP 117/68
[2022-03-05 05:09] LABS: BASOPHILS % 0.4 % (0.0-1.0); EOSINOPHILS # (AUTO) 0.3 (0.0-0.4); EOSINOPHILS % 3.5 % (0.0-6.0); HEMATOCRIT 36.8 % (38.2-49.6); HEMOGLOBIN 11.9 g/dL (14.0-18.0); LYMPHOCYTES # (AUTO) 0.7 (1.0-3.2); LYMPHOCYTES % 9.2 % (18.0-39.1); MEAN CORPUSCULAR HEMOGLOBIN 30.2 pg (28-32); MEAN CORPUSCULAR HGB CONC 32.3 g/dL (31-35); MEAN CORPUSCULAR VOLUME 93.4 fL (81-99); MONOCYTES # (AUTO) 0.8 (0.2-0.8); MONOCYTES % 10.6 % (4.4-11.3); NEUTROPHILS # (AUTO) 5.4 (2.1-6.9); PLATELET COUNT 149 x10e3/uL (140-360); RED BLOOD COUNT 3.94 x10e6/uL (4.3-5.7); RED CELL DISTRIBUTION WIDTH 13.2 % (11.7-14.4)
[2022-03-05 05:38] LABS: ALBUMIN/GLOBULIN RATIO 0.8 (0.8-2.0); ANION GAP 9.9 mmol/L (8-16); CALCIUM 8.2 mg/dL (8.4-10.2); CREATININE, SERUM 1.07 mg/dL (0.72-1.25); POTASSIUM 3.9 mmol/L (3.5-5.1)
[2022-03-05] MEDS: INSULIN REGULAR, HUMAN 100 UNIT/1 ML SQ SCH ×4 (07:30→20:35)
[2022-03-05 08:24] VITALS: BP 110/59
[2022-03-05] MEDS: Vancomycin IV 1 GM in SODIUM CHLORIDE 0.9% 250ML 250 ML IV SCH (18:21)
[2022-03-05 20:00] VITALS: BP 132/75
[2022-03-05 21:00] VITALS: BP 132/75
[2022-03-06] VITALS (9 sets, daily range): BP systolic 112–139; BP diastolic 65–79
[2022-03-06] MEDS ORDERED: SODIUM CHLORIDE 0.9% 250ML 250 ML ONE (02:22)
[2022-03-06] MEDS: Vancomycin IV 1 GM in SODIUM CHLORIDE 0.9% 250ML 250 ML IV SCH ×2 (06:46→18:30)
[2022-03-06] MEDS: INSULIN REGULAR, HUMAN 100 UNIT/1 ML SQ SCH ×4 (09:02→21:00)
[2022-03-06] MEDS ORDERED: Vancomycin IV 1 GM VIAL ONE (11:52)
[2022-03-06] MEDS ORDERED: DEXAMETHASONE SOD PHOS INJ 4 MG/ML SDV ONE (11:52)
[2022-03-06] MEDS ORDERED: BUPIVACAINE 0.25% 30ML SDV ONE (11:53)
[2022-03-06] MEDS ORDERED: FENTANYL CITRATE/PF 100MCG/2 ML INJ ONE (12:57)
[2022-03-06] MEDS ORDERED: MIDAZOLAM HCL 2 MG/2 ML VIAL ONE (12:57)
[2022-03-06] MEDS ORDERED: EPHEDRINE SULFATE INJ 50 MG/ML VIAL ONE (13:46)
[2022-03-06] MEDS ORDERED: POVIDONE IODINE 0.05% 0.05 % ML PO ONE (13:46)
[2022-03-06] MEDS ORDERED: SEVOFLURANE INHAL SOLN 250 ML PEN BTL ONE (13:46)
[2022-03-06] MEDS ORDERED: PROPOFOL IV EMULSION 10 MG/ML 20 ML VIAL ONE (13:46)
[2022-03-06] MEDS ORDERED: ONDANSETRON HCL INJ 2MG/ML 2ML 2 MG/ML VIAL ONE (13:46)
[2022-03-06] MEDS: Morphine 4mg Syringe 4 MG/ML INJ IV PRN (22:04)
[2022-03-06] MEDS: ONDANSETRON HCL INJ 2MG/ML 2ML 2 MG/ML VIAL IV PRN (22:05)
[2022-03-07 04:00] VITALS: BP 110/68
[2022-03-07] MEDS: Vancomycin IV 1 GM in SODIUM CHLORIDE 0.9% 250ML 250 ML IV SCH ×2 (06:36→17:18)
[2022-03-07] MEDS: INSULIN REGULAR, HUMAN 100 UNIT/1 ML SQ SCH ×4 (07:30→21:00)
[2022-03-07 08:00] VITALS: BP 121/68
[2022-03-07 11:58] VITALS: BP 120/68
[2022-03-07 15:32] VITALS: BP 131/68
[2022-03-07 20:00] VITALS: BP 140/77
[2022-03-07] MEDS: ATORVASTATIN 40 MG TAB PO SCH (21:09)
[2022-03-08] VITALS (8 sets, daily range): BP systolic 113–160; BP diastolic 69–82
[2022-03-08] MEDS: Vancomycin IV 1 GM in SODIUM CHLORIDE 0.9% 250ML 250 ML IV SCH ×2 (06:21→19:50)
[2022-03-08] MEDS: INSULIN REGULAR, HUMAN 100 UNIT/1 ML SQ SCH ×3 (07:30→16:30)
[2022-03-08] MEDS: METOPROLOL SUCCINATE 25 MG TAB XL PO SCH (09:10)
[2022-03-08] MEDS: LOSARTAN POTASSIUM 25 MG TAB PO SCH (09:10)
[2022-03-08] MEDS: ATORVASTATIN 40 MG TAB PO SCH (21:28)
[2022-03-09] VITALS (8 sets, daily range): BP systolic 121–148; BP diastolic 71–93
[2022-03-09] MEDS: INSULIN REGULAR, HUMAN 100 UNIT/1 ML SQ SCH ×5 (00:46→21:34)
[2022-03-09] MEDS: Vancomycin IV 1 GM in SODIUM CHLORIDE 0.9% 250ML 250 ML IV SCH ×2 (06:22→17:35)
[2022-03-09] MEDS: METOPROLOL SUCCINATE 25 MG TAB XL PO SCH (08:54)
[2022-03-09] MEDS: LOSARTAN POTASSIUM 25 MG TAB PO SCH (08:54)
[2022-03-09] MEDS: ASPIRIN 81 MG CHEW TAB PO SCH (08:54)
[2022-03-09] MEDS: ATORVASTATIN 40 MG TAB PO SCH (21:29)
[2022-03-10] VITALS (8 sets, daily range): BP systolic 112–137; BP diastolic 57–81
[2022-03-10] MEDS: Vancomycin IV 1 GM in SODIUM CHLORIDE 0.9% 250ML 250 ML IV SCH ×2 (06:53→18:42)
[2022-03-10] MEDS: INSULIN REGULAR, HUMAN 100 UNIT/1 ML SQ SCH ×4 (07:30→22:05)
[2022-03-10] MEDS: ASPIRIN 81 MG CHEW TAB PO SCH (08:42)
[2022-03-10] MEDS: METOPROLOL SUCCINATE 25 MG TAB XL PO SCH (08:43)
[2022-03-10] MEDS: LOSARTAN POTASSIUM 25 MG TAB PO SCH (08:43)
[2022-03-10] MEDS: ATORVASTATIN 40 MG TAB PO SCH (20:16)
[2022-03-11] VITALS (7 sets, daily range): BP systolic 124–150; BP diastolic 68–88
[2022-03-11] MEDS: Vancomycin IV 1 GM in SODIUM CHLORIDE 0.9% 250ML 250 ML IV SCH ×2 (05:23→18:49)
[2022-03-11] MEDS: ASPIRIN 81 MG CHEW TAB PO SCH (08:27)
[2022-03-11] MEDS: LOSARTAN POTASSIUM 25 MG TAB PO SCH (08:28)
[2022-03-11] MEDS: METOPROLOL SUCCINATE 25 MG TAB XL PO SCH (08:28)
[2022-03-11] MEDS: INSULIN REGULAR, HUMAN 100 UNIT/1 ML SQ SCH ×4 (08:29→21:23)
[2022-03-11] MEDS: ATORVASTATIN 40 MG TAB PO SCH (20:40)
[2022-03-12] VITALS (8 sets, daily range): BP systolic 116–142; BP diastolic 65–80
[2022-03-12] MEDS: Vancomycin IV 1 GM in SODIUM CHLORIDE 0.9% 250ML 250 ML IV SCH ×2 (06:22→18:30)
[2022-03-12] MEDS: INSULIN REGULAR, HUMAN 100 UNIT/1 ML SQ SCH ×4 (07:30→21:00)
[2022-03-12] MEDS ORDERED: TRAMADOL HCL 50 MG TAB PO PRN (08:30)
[2022-03-12 08:47] LABS: BASOPHILS % 0.7 % (0.0-1.0); EOSINOPHILS # (AUTO) 0.3 (0.0-0.4); EOSINOPHILS % 4.4 % (0.0-6.0); HEMATOCRIT 43.4 % (38.2-49.6); HEMOGLOBIN 14.1 g/dL (14.0-18.0); LYMPHOCYTES # (AUTO) 0.9 (1.0-3.2); LYMPHOCYTES % 14.3 % (18.0-39.1); MEAN CORPUSCULAR HEMOGLOBIN 29.5 pg (28-32); MEAN CORPUSCULAR HGB CONC 32.5 g/dL (31-35); MEAN CORPUSCULAR VOLUME 90.8 fL (81-99); MONOCYTES # (AUTO) 0.6 (0.2-0.8); MONOCYTES % 10.3 % (4.4-11.3); NEUTROPHILS # (AUTO) 4.2 (2.1-6.9); PLATELET COUNT 208 x10e3/uL (140-360); RED BLOOD COUNT 4.78 x10e6/uL (4.3-5.7); RED CELL DISTRIBUTION WIDTH 12.7 % (11.7-14.4)
[2022-03-12] MEDS ORDERED: INSULIN GLARGINE 100 UNITS/ML VIAL SQ ONE (09:15)
[2022-03-12 09:16] LABS: ANION GAP 10.4 mmol/L (8-16); CALCIUM 9.5 mg/dL (8.4-10.2); CREATININE, SERUM 1.16 mg/dL (0.72-1.25); POTASSIUM 4.4 mmol/L (3.5-5.1)
[2022-03-12] MEDS: METOPROLOL SUCCINATE 25 MG TAB XL PO SCH (09:48)
[2022-03-12] MEDS: LEVOTHYROXINE SODIUM 50 MCG TAB PO SCH (09:48)
[2022-03-12] MEDS: LOSARTAN POTASSIUM 25 MG TAB PO SCH (09:48)
[2022-03-12] MEDS: ASPIRIN 81 MG CHEW TAB PO SCH (09:48)
[2022-03-12] MEDS: PRIMIDONE 50 MG TAB PO SCH ×2 (09:48→17:50)
[2022-03-12] MEDS: GABAPENTIN 300 MG CAP PO SCH ×2 (09:48→17:50)
[2022-03-12] MEDS: SERTRALINE HCL 50 MG TAB PO SCH (09:49)
[2022-03-12] MEDS: ATORVASTATIN 40 MG TAB PO SCH (20:59)
[2022-03-12] MEDS: INSULIN GLARGINE 100 UNITS/ML VIAL SQ SCH (21:00)
[2022-03-13] VITALS (9 sets, daily range): BP systolic 133–152; BP diastolic 70–86
[2022-03-13] MEDS: Vancomycin IV 1 GM in SODIUM CHLORIDE 0.9% 250ML 250 ML IV SCH ×2 (05:48→18:28)
[2022-03-13] MEDS: LEVOTHYROXINE SODIUM 50 MCG TAB PO SCH (05:48)
[2022-03-13] MEDS: INSULIN REGULAR, HUMAN 100 UNIT/1 ML SQ SCH ×4 (07:30→21:00)
[2022-03-13] MEDS: LOSARTAN POTASSIUM 25 MG TAB PO SCH (09:25)
[2022-03-13] MEDS: PRIMIDONE 50 MG TAB PO SCH ×2 (09:25→17:14)
[2022-03-13] MEDS: GABAPENTIN 300 MG CAP PO SCH ×2 (09:25→17:14)
[2022-03-13] MEDS: ASPIRIN 81 MG CHEW TAB PO SCH (09:25)
[2022-03-13] MEDS: SERTRALINE HCL 50 MG TAB PO SCH (09:26)
[2022-03-13] MEDS: METOPROLOL SUCCINATE 25 MG TAB XL PO SCH (09:26)
[2022-03-13] MEDS ORDERED: ONDANSETRON HCL 4 MG ORAL DISINTEGRATING TAB PO PRN (17:30)
[2022-03-13] MEDS: INSULIN GLARGINE 100 UNITS/ML VIAL SQ SCH (21:00)
[2022-03-13] MEDS: ATORVASTATIN 40 MG TAB PO SCH (21:28)
[2022-03-14] VITALS (9 sets, daily range): BP systolic 118–147; BP diastolic 60–89
[2022-03-14] MEDS: LEVOTHYROXINE SODIUM 50 MCG TAB PO SCH (06:09)
[2022-03-14] MEDS: Vancomycin IV 1 GM in SODIUM CHLORIDE 0.9% 250ML 250 ML IV SCH ×2 (06:09→19:16)
[2022-03-14] MEDS: INSULIN REGULAR, HUMAN 100 UNIT/1 ML SQ SCH ×4 (07:30→21:00)
[2022-03-14] MEDS: ASPIRIN 81 MG CHEW TAB PO SCH (08:49)
[2022-03-14] MEDS: LOSARTAN POTASSIUM 25 MG TAB PO SCH (08:50)
[2022-03-14] MEDS: SERTRALINE HCL 50 MG TAB PO SCH (08:50)
[2022-03-14] MEDS: PRIMIDONE 50 MG TAB PO SCH ×2 (08:50→16:24)
[2022-03-14] MEDS: METOPROLOL SUCCINATE 25 MG TAB XL PO SCH (08:50)
[2022-03-14] MEDS: GABAPENTIN 300 MG CAP PO SCH ×2 (08:50→16:24)
[2022-03-14] MEDS: EMPAGLIFLOZIN 10 MG TABLET PO SCH (13:05)
[2022-03-14] MEDS: METFORMIN HCL 500 MG TAB PO SCH (16:24)
[2022-03-14] MEDS: INSULIN GLARGINE 100 UNITS/ML VIAL SQ SCH (21:00)
[2022-03-14] MEDS: ATORVASTATIN 40 MG TAB PO SCH (21:21)
[2022-03-15 04:00] VITALS: BP 132/71
[2022-03-15] MEDS: LEVOTHYROXINE SODIUM 50 MCG TAB PO SCH (06:10)
[2022-03-15] MEDS: Vancomycin IV 1 GM in SODIUM CHLORIDE 0.9% 250ML 250 ML IV SCH ×2 (06:51→18:17)
[2022-03-15] MEDS: INSULIN REGULAR, HUMAN 100 UNIT/1 ML SQ SCH ×4 (07:30→21:00)
[2022-03-15 09:14] VITALS: BP 132/71
[2022-03-15] MEDS: GABAPENTIN 300 MG CAP PO SCH ×2 (09:37→16:34)
[2022-03-15] MEDS: ASPIRIN 81 MG CHEW TAB PO SCH (09:37)
[2022-03-15] MEDS: PRIMIDONE 50 MG TAB PO SCH ×2 (09:38→16:34)
[2022-03-15] MEDS: EMPAGLIFLOZIN 10 MG TABLET PO SCH (09:38)
[2022-03-15] MEDS: LOSARTAN POTASSIUM 25 MG TAB PO SCH (09:38)
[2022-03-15] MEDS: METFORMIN HCL 500 MG TAB PO SCH ×2 (09:39→16:34)
[2022-03-15] MEDS: METOPROLOL SUCCINATE 25 MG TAB XL PO SCH (09:39)
[2022-03-15] MEDS: SERTRALINE HCL 50 MG TAB PO SCH (09:40)
[2022-03-15 12:00] VITALS: BP 135/74
[2022-03-15 17:34] VITALS: BP 123/64
[2022-03-15 20:00] VITALS: BP 130/73
[2022-03-15] MEDS: INSULIN GLARGINE 100 UNITS/ML VIAL SQ SCH (21:00)
[2022-03-15] MEDS: ATORVASTATIN 40 MG TAB PO SCH (21:00)
[2022-03-16] VITALS (8 sets, daily range): BP systolic 124–145; BP diastolic 66–81
[2022-03-16] MEDS: LEVOTHYROXINE SODIUM 50 MCG TAB PO SCH (06:00)
[2022-03-16] MEDS: Vancomycin IV 1 GM in SODIUM CHLORIDE 0.9% 250ML 250 ML IV SCH (06:30)
[2022-03-16] MEDS: INSULIN REGULAR, HUMAN 100 UNIT/1 ML SQ SCH ×4 (07:30→21:00)
[2022-03-16] MEDS: METOPROLOL SUCCINATE 25 MG TAB XL PO SCH (09:00)
[2022-03-16] MEDS: LOSARTAN POTASSIUM 25 MG TAB PO SCH (09:00)
[2022-03-16] MEDS: METFORMIN HCL 500 MG TAB PO SCH ×2 (10:34→17:26)
[2022-03-16] MEDS: SERTRALINE HCL 50 MG TAB PO SCH (10:38)
[2022-03-16] MEDS: EMPAGLIFLOZIN 10 MG TABLET PO SCH (10:38)
[2022-03-16] MEDS: GABAPENTIN 300 MG CAP PO SCH ×2 (10:38→17:26)
[2022-03-16] MEDS: PRIMIDONE 50 MG TAB PO SCH ×2 (10:38→17:26)
[2022-03-16] MEDS: ASPIRIN 81 MG CHEW TAB PO SCH (10:38)
[2022-03-16] MEDS: ATORVASTATIN 40 MG TAB PO SCH (21:00)
[2022-03-16] MEDS: INSULIN GLARGINE 100 UNITS/ML VIAL SQ SCH (21:00)
[2022-03-17] VITALS (7 sets, daily range): BP systolic 104–138; BP diastolic 63–76
[2022-03-17] MEDS: LEVOTHYROXINE SODIUM 50 MCG TAB PO SCH (06:00)
[2022-03-17] MEDS: INSULIN REGULAR, HUMAN 100 UNIT/1 ML SQ SCH ×4 (07:30→21:00)
[2022-03-17] MEDS: ASPIRIN 81 MG CHEW TAB PO SCH (10:09)
[2022-03-17] MEDS: METFORMIN HCL 500 MG TAB PO SCH ×2 (10:09→17:00)
[2022-03-17] MEDS: GABAPENTIN 300 MG CAP PO SCH ×2 (10:10→17:00)
[2022-03-17] MEDS: PRIMIDONE 50 MG TAB PO SCH ×2 (10:10→17:00)
[2022-03-17] MEDS: LOSARTAN POTASSIUM 25 MG TAB PO SCH (10:10)
[2022-03-17] MEDS: EMPAGLIFLOZIN 10 MG TABLET PO SCH (10:10)
[2022-03-17] MEDS: METOPROLOL SUCCINATE 25 MG TAB XL PO SCH (10:10)
[2022-03-17] MEDS: SERTRALINE HCL 50 MG TAB PO SCH (10:11)
[2022-03-17] MEDS ORDERED: CEFTRIAXONE 2 GM in SODIUM CHLORIDE 0.9% 100 ML IV SCH (15:00)
[2022-03-17] MEDS ORDERED: HUMULIN R100 UNIT/2 INJ (16:50)
[2022-03-17] MEDS ORDERED: CEFTRIAXON2 GM/50 ML IVP (16:52)
[2022-03-17] MEDS ORDERED: ONDANSETRON ODT4 MG PO (16:53)
[2022-03-17] MEDS: ATORVASTATIN 40 MG TAB PO SCH (21:07)
[2022-03-17] MEDS: INSULIN GLARGINE 100 UNITS/ML VIAL SQ SCH (21:09)
== END 2022-03-17 22:24 | DRG 854 ==
LOC: ER 18:00 → ERHOLD 18:12 → MED/SURG3 20:16
PROVIDERS: ADMIT Internal Medicine; ATTEND Internal Medicine
PROC: 3E03329 Introduction of Other Anti-infective into Peripheral Vein, Percutaneous Approach (ICD-10-PCS; 2022-03-04)
PROC: 3E0102A Introduction of Anti-Infective Envelope into Subcutaneous Tissue, Open Approach (ICD-10-PCS; 2022-03-06)
PROC: 0Y6M0ZB Detachment at Right Foot, Partial 2nd Ray, Open Approach (ICD-10-PCS; principal; 2022-03-06 11:59)
DX: A41.9 Sepsis, unspecified organism (principal); L03.115 Cellulitis of right lower limb; E87.2 Acidosis; M86.171 Other acute osteomyelitis, right ankle and foot; L02.611 Cutaneous abscess of right foot; E11.52 Type 2 diabetes mellitus with diabetic peripheral angiopathy with gangrene; I96 Gangrene, not elsewhere classified; L97.514 Non-pressure chronic ulcer of other part of right foot with necrosis of bone; R65.20 Severe sepsis without septic shock; E11.621 Type 2 diabetes mellitus with foot ulcer; E03.9 Hypothyroidism, unspecified; E11.22 Type 2 diabetes mellitus with diabetic chronic kidney disease; I12.9 Hypertensive chronic kidney disease with stage 1 through stage 4 chronic kidney disease, or unspecified chronic kidney disease; T87.81 Dehiscence of amputation stump; N18.30 Chronic kidney disease, stage 3 unspecified; I48.0 Paroxysmal atrial fibrillation; E11.69 Type 2 diabetes mellitus with other specified complication; E78.5 Hyperlipidemia, unspecified; E11.42 Type 2 diabetes mellitus with diabetic polyneuropathy; I25.10 Atherosclerotic heart disease of native coronary artery without angina pectoris; Z95.820 Peripheral vascular angioplasty status with implants and grafts; Z85.038 Personal history of other malignant neoplasm of large intestine; Z90.49 Acquired absence of other specified parts of digestive tract; Z79.4 Long term (current) use of insulin; Z20.822 Contact with and (suspected) exposure to COVID-19
CPT/HCPCS: 36415; 80048; 80053; 80202; 82948; 83605; 85025; 87040; 87071; 87205; 88304; 88305; 88311; 93005; 93306; 96372; 97139; 99251; 99283; C1713; J0696; J1100; J2250; J2270; J2405; J2543; J3010; J3370; J7030; J7050; J7799; U0002

== ENCOUNTER 2022-09-25 12:09 | Emergency (ER) | payer MEDICARE, OTHER ==
[~2022-09-25] VITALS: Ht 175.3 cm; Wt 82.6 kg
[~2022-09-25 12:09] MED LIST changes: +CEFTRIAXON2 GM/50 ML IVP; +HUMULIN R100 UNIT/2 INJ; +ONDANSETRON ODT4 MG PO
== END 2022-09-25 15:01 | disposition home or self-care (01) ==
LOC: ER 12:54
DX: S00.11XA Contusion of right eyelid and periocular area, initial encounter (principal); W01.0XXA Fall on same level from slipping, tripping and stumbling without subsequent striking against object, initial encounter; Y93.01 Activity, walking, marching and hiking; Y92.89 Other specified places as the place of occurrence of the external cause; I10 Essential (primary) hypertension; E11.9 Type 2 diabetes mellitus without complications; E03.9 Hypothyroidism, unspecified; Z98.0 Intestinal bypass and anastomosis status; Z85.038 Personal history of other malignant neoplasm of large intestine
CPT/HCPCS: 70450; 70486; 72125; 99283